=== PATIENT | female | born 1945 | race Caucasian/White ===

== ENCOUNTER 2017-05-03 19:15 | Emergency (ER) | payer MEDICARE ==
--- NOTE | 2017-05-03 19:53 | ER Document Report ---
ED Medical Screen (RME) - General Chief Complaint: Abdominal Pain Stated Complaint: ABDOMINAL PAIN Time Seen by Provider: 05/03/17 19:34 Mode of Arrival: Ambulatory Information source: Patient Notes: 71-year-old female presents with complaints of right lower quadrant abdominal pain. Patient notes the pain radiates to her side. Denies any fevers or chills nausea vomiting or diarrhea I have greeted and performed a rapid initial assessment of this patient. A comprehensive ED assessment and evaluation of the patient, analysis of test results and completion of the medical decision making process will be conducted by additional ED providers. PHYSICAL EXAMINATION: GENERAL: Well-appearing, well-nourished and in no acute distress. HEAD: Atraumatic, normocephalic. EYES: Pupils equal round extraocular movements intact, conjunctiva are normal. ENT: Nares patent NECK: Normal range of motion LUNGS: No respiratory distress Musculoskeletal: Normal range of motion NEUROLOGICAL: Normal speech, normal gait. PSYCH: Normal mood, normal affect. SKIN: Warm, Dry, normal turgor, no rashes or lesions noted. TRAVEL OUTSIDE OF THE [place] IN LAST 30 DAYS: No Past Medical History Renal/ Medical History: Denies: Hx Peritoneal Dialysis
[2017-05-03 20:35] LABS: ABSOLUTE BASOPHILS # (AUTO) 0.1 10^3/uL (0.0-0.2); ABSOLUTE EOSINOPHILS # (AUTO) 0.3 10^3/uL (0.0-0.6); ABSOLUTE LYMPHOCYTES (AUTO) 2.5 10^3/uL (0.5-4.7); ABSOLUTE MONOCYTES (AUTO) 0.4 10^3/uL (0.1-1.4); BASOPHILS % (AUTO) 1.5 % (0-2); HEMATOCRIT 44.8 % (36.0-47.0); HEMOGLOBIN 14.9 g/dL (12.0-15.5); HGB HCT DIFFERENCE -0.1; LYMPHOCYTES % (AUTO) 39.5 % (13-45); MEAN CORPUSCULAR HGB CONC 33.2 g/dL (32.0-36.0); MEAN CORPUSCULAR VOLUME 88 fl (80-97); MONOCYTES % (AUTO) 6.8 % (3-13); RED BLOOD COUNT 5.12 10^6/uL (3.72-5.28); RED CELL DISTRIBUTION WIDTH 15.2 % (11.5-14.0); SEGMENTED NEUTROPHILS % (AUTO) 47.2 % (42-78); WHITE BLOOD COUNT 6.4 10^3/uL (4.0-10.5)
[2017-05-03 20:43] LABS: APPEARANCE,URINE CLEAR
[2017-05-03 20:44] LABS: BILIRUBIN,URINE NEGATIVE (NEGATIVE); GLUCOSE, URINE NEGATIVE (NEGATIVE); KETONES,URINE NEGATIVE (NEGATIVE); LEUKOCYTE ESTERASE,URINE NEGATIVE (NEGATIVE); NITRITE,URINE NEGATIVE (NEGATIVE); PROTEIN,URINE 30 mg/dL (NEGATIVE); URINE SPECIFIC GRAVITY 1.024; UROBILINOGEN,URINE NEGATIVE mg/dL (<2.0)
[2017-05-03 20:45] LABS: BACTERIA,URINE TRACE /HPF; RBC,URINE 0-1 /HPF; WBC,URINE 0-1 /HPF
[2017-05-03 20:56] LABS: ALANINE AMINOTRANSFERASE 30 U/L (9-52); ALBUMIN 3.8 g/dL (3.5-5.0); ALKALINE PHOSPHATASE 116 U/L (38-126); ANION GAP 9 (5-19); ASPARTATE AMINO TRANSFERASE 24 U/L (14-36); BILIRUBIN,DIRECT 0.3 mg/dL (0.0-0.4); BILIRUBIN,TOTAL 0.4 mg/dL (0.2-1.3); BLOOD UREA NITROGEN 18 mg/dL (7-20); CALCIUM 9.3 mg/dL (8.4-10.2); CARBON DIOXIDE 25 mmol/L (22-30); CHLORIDE 106 mmol/L (98-107); CREATININE RESULT 1.01 mg/dL (0.52-1.25); GLUCOSE 110 mg/dL (75-110); POTASSIUM 3.6 mmol/L (3.6-5.0); SODIUM 139.9 mmol/L (137-145); TOTAL PROTEIN 7.4 g/dL (6.3-8.2)
--- NOTE | 2017-05-03 21:07 | ER Document Report ---
ED General - General Chief Complaint: Hip Pain Stated Complaint: Right hip pain Time Seen by Provider: 05/03/17 19:34 Mode of Arrival: Ambulatory Notes: Patient is a 71-year-old woman who presents with 4 days of progressively worsening right hip and buttock pain. Contrary to triage assessment initial stated complaint patient does not actually have any abdominal pain whatsoever. She is actually complaining of right buttock pain as well as pain over the right hip. She has a history of former right hip replacement but notes that she has a "bad right knee" and has been walking without a cane. Her pain is described as a dull, constant, throbbing pain to the affected area. It is worsened by weightbearing and moving the hip. She has not been trying to improve the pain. She has not seen a primary care doctor regarding these concerns. She denies any associated nausea, vomiting, diarrhea, fever, dysuria , vaginal bleeding or discharge. TRAVEL OUTSIDE OF THE [place] IN LAST 30 DAYS: No - Related Data Allergies/Adverse Reactions: No Known Allergies Allergy (Unverified 05/03/17 21:08) Home Medications: Current Home Medications Metoprolol Succinate 25 mg PO DAILY 05/03/17 [History] Ranitidine HCl [Zantac] 25 mg PO DAILY 05/03/17 [History] Past Medical History - General Information source: Patient - Social History Smoking Status: Never Smoker Chew tobacco use (# tins/day): No Frequency of alcohol use: None Drug Abuse: None Lives with: Spouse/Significant other Family History: Reviewed & Not Pertinent Patient has suicidal ideation: No Patient has homicidal ideation: No - Past Medical History Cardiac Medical History: Reports: Hx Hypertension Renal/ Medical History: Denies: Hx Peritoneal Dialysis Review of Systems - Review of Systems Notes: Constitutional: Negative for fever. HENT: Negative for sore throat. Eyes: Negative for visual changes. Cardiovascular: Negative for chest pain. Respiratory: Negative for shortness of breath. Gastrointestinal: Negative for abdominal pain, vomiting or diarrhea. Genitourinary: Negative for dysuria. Musculoskeletal: Positive for right hip pain and buttock pain Skin: Negative for rash. Neurological: Negative for headaches, weakness or numbness. 10 point ROS negative except as marked above and in HPI. Physical Exam - Vital signs Vitals: Temp Pulse Resp BP Pulse Ox 97.9 F 80 20 154/78 H 95 05/03/17 19:20 05/03/17 19:20 05/03/17 19:20 05/03/17 19:20 05/03/17 19:20 Interpretation: Hypertensive Notes: PHYSICAL EXAMINATION: GENERAL: Well-appearing, well-nourished and in no acute distress. HEAD: Atraumatic, normocephalic. EYES: Pupils equal round and reactive to light, extraocular movements intact, sclera anicteric, conjunctiva are normal. ENT: nares patent, oropharynx clear without exudates. Moist mucous membranes. NECK: Normal range of motion, supple without lymphadenopathy LUNGS: Breath sounds clear to auscultation bilaterally and equal. No wheezes rales or rhonchi. HEART: Regular rate and rhythm without murmurs ABDOMEN: Soft, nontender, normoactive bowel sounds. No guarding, no rebound. No masses appreciated. EXTREMITIES: Normal range of motion, no pitting or edema. Pain on palpation of the right hip and gluteus muscle. NEUROLOGICAL: No focal neurological deficits. Moves all extremities spontaneously and on command. PSYCH: Normal mood, normal affect. SKIN: Warm, Dry, normal turgor, no rashes or lesions noted. Course - Re-evaluation Re-evalutation: 05/03/17 21:10 Patient presents with 3 days of progressively worsening right hip and buttock pain but denies any actual abdominal pain contrary to triage assessment. Patient has no focal abdominal tenderness whatsoever on exam actually has pain with axial loading of the right hip and range of motion of the right hip. She does have chronic right knee pain and I suspect this is causing her to walk with an abnormal gait causing right hip, buttock and low back pain which is exactly the patient has tenderness on palpation. Urinalysis and basic laboratories obtained in triage are unremarkable. Again I do not suspect an acute appendicitis, acute cystitis, biliary pathology, pancreatitis, bowel perforation or mesenteric ischemia based on her exam, vitals labs and history. I discussed at length with the patient her need to follow-up with an orthopedic surgeon as her chronic knee pain is likely triggering her hip and low back discomfort. At this time will discharge with return precautions and follow-up recommendations. Verbal discharge instructions given a the bedside and opportunity for questions given. Medication warnings reviewed. Patient is in agreement with this plan and has verbalized understanding of return precautions and the need for primary care follow-up in the next 24-72 hours. - Vital Signs Vital signs: Temp Pulse Resp BP Pulse Ox 98.1 F 54 L 13 151/78 H 87 L 05/03/17 21:19 05/03/17 21:19 05/03/17 21:19 05/03/17 21:19 05/03/17 21:19 - Laboratory Result Diagrams: 05/03/17 20:10 05/03/17 20:10 Laboratory results interpreted by me: 05/03/17 05/03/17 05/03/17 20:10 20:10 20:10 RDW 15.2 H Est GFR (Non-Af Amer) 54 L Urine Protein 30 H Discharge - Discharge Clinical Impression: Right hip pain, Right buttock pain Condition: Good Disposition: HOME, SELF-CARE Additional Instructions: Please follow-up with orthopedic surgery for management of your pain in the knee and hip. Return if you develop vomiting, fever, worsening of your pain, weakness, numbness or any other symptoms that are worrisome to you. Referrals: HENRIETTA NOBLE MD [ACTIVE STAFF] - Follow up as needed JARRED STRICKLAND MD [ACTIVE STAFF] - Follow up as needed
[2017-05-03 21:26] VITALS: BP 151/78
== END 2017-05-03 21:27 | disposition home or self-care (01) ==
LOC: ER 19:15
DX: M25.551 Pain in right hip (principal); I10 Essential (primary) hypertension; G89.29 Other chronic pain; M25.561 Pain in right knee; Z96.641 Presence of right artificial hip joint
CPT/HCPCS: 36415; 80053; 81001; 83690; 85025; 99284

== ENCOUNTER 2017-05-15 12:49 | Emergency (ER) | payer MEDICARE ==
[2017-05-15] MEDS ORDERED: OXYCODONE-ACETAMINOPHEN 5-325 MG TABLET PO ONE (15:57)
--- NOTE | 2017-05-15 16:02 | ER Document Report ---
ED General - General Chief Complaint: Low Back Pain Stated Complaint: BACK PAIN Time Seen by Provider: 05/15/17 15:56 Information source: Patient Notes: Patient is a 71-year-old female that is recently moved here april 05 who presents today stating that she has had some low back pain and right upper quadrant pain initially around 3 weeks ago. She states she was seen here and had laboratory evaluation. Patient states she felt better for around 1 week and then started again with the pain. She states it is mostly to her back. She states it is "sharp", without radiation. She denies any leg weakness or numbness. She denies any incontinence, dysuria, or fevers. She does not endorse nausea, vomiting, or diarrhea. Patient denies a history of kidney stones. She denies any cough or shortness of breath. States the pain is mostly to her back, worse when she gets up from a seated position or sits up from a lying position. TRAVEL OUTSIDE OF THE [place] IN LAST 30 DAYS: No - HPI Onset: Other - See above Onset/Duration: Gradual Quality of pain: Achy Severity: Mild Pain Level: 1 Associated symptoms: Other - See above Exacerbated by: Other - See above Relieved by: Other - See above Similar symptoms previously: Yes Recently seen / treated by doctor: Yes - Related Data Allergies/Adverse Reactions: No Known Allergies Allergy (Verified 05/15/17 13:20) Past Medical History - General Information source: Patient - Social History Smoking Status: Never Smoker Chew tobacco use (# tins/day): No Frequency of alcohol use: None Drug Abuse: None Family History: Reviewed & Not Pertinent Patient has suicidal ideation: No Patient has homicidal ideation: No - Past Medical History Cardiac Medical History: Reports: Hx Hypertension Renal/ Medical History: Denies: Hx Peritoneal Dialysis Past Surgical History: Reports: Hx Orthopedic Surgery Review of Systems - Review of Systems Constitutional: denies: Fever Cardiovascular: denies: Chest pain, Palpitations Respiratory: denies: Short of breath Gastrointestinal: denies: Vomiting Genitourinary: denies: Dysuria Musculoskeletal: denies: Leg swelling Skin: Other - no hives. denies: Rash Neurological/Psychological: Other - no slurred speech -: Yes All other systems reviewed and negative Physical Exam - Vital signs Vitals: Temp Pulse Resp BP Pulse Ox 98.3 F 60 18 142/79 H 97 05/15/17 13:22 05/15/17 13:22 05/15/17 13:22 05/15/17 13:22 05/15/17 13:22 Notes: Reviewed vital signs and nursing note as charted by RN. CONSTITUTIONAL: Alert and oriented and responds appropriately to questions. Well -appearing; well-nourished HEAD: Normocephalic; atraumatic CARD: Regular rate and rhythm; no murmurs, no clicks, no rubs, no gallops; symmetric distal pulses RESP: Normal chest excursion without splinting or tachypnea; breath sounds clear and equal bilaterally ABD/GI: Normal bowel sounds; non-distended; soft, non-tender currently to deep palpation in all 4 quadrants of the abdomen. Patient has no abdominal masses or bruits palpable BACK: The back appears normal. Patient has no midline step-offs, tenderness, or swelling. Patient has some mild bilateral flank tenderness, right greater than left EXT: Normal ROM in all joints; non-tender to palpation; no cyanosis, no effusions, no edema SKIN: Normal color for age and race; warm; dry; good turgor; capillary refill < 2 seconds; no acute lesions noted NEURO: Moves all extremities equally; 5 out of 5 bilateral lower extremity strength with normal reflexes PSYCH: The patient's mood and manner are appropriate. Grooming and personal hygiene are appropriate. Course - Re-evaluation Re-evalutation: 05/15/17 16:01 Given the above history and physical examination, visit, we will obtain basic labs, abdominal labs, urine analysis, and a CT scan of the abdomen and pelvis renal colic protocol to evaluate both kidneys, ureter tracts, and possibly obvious intra-abdominal pathology. Patient states only pain mostly to her back. Denies any pain currently to her abdomen. Patient has no lower extremity weakness or numbness leading us to believe acute cord compression to be extremely unlikely. 05/15/17 16:39 EKG shows a heart rate of 49, sinus bradycardia, normal axis, no obvious ST elevation or depression, flattening T waves in leads aVL, V2, and V3 05/15/17 18:43 CT imaging as recorded. Labs as recorded. Normal white blood cell count. Normal liver panel that I added to the previous labs. Patient still has no tenderness to the right upper quadrant. Given the above history, physical, and laboratory values, patient will be discharged home at this time with strict return precautions and follow-up with her primary care physician. - Vital Signs Vital signs: Temp Pulse Resp BP Pulse Ox 98.3 F 60 18 142/79 H 97 05/15/17 13:22 05/15/17 13:22 05/15/17 13:22 05/15/17 13:22 05/15/17 13:22 - Laboratory Result Diagrams: 05/15/17 16:35 05/15/17 16:35 Laboratory results interpreted by me: 05/15/17 05/15/17 16:35 16:35 RBC 5.38 H RDW 15.3 H Alkaline Phosphatase 135 H Discharge - Discharge Clinical Impression: Low back strain Qualifiers: Encounter type: initial encounter Qualified Code(s): S39.012A - Strain of muscle, fascia and tendon of lower back, initial encounter Cholelithiasis Qualifiers: Cholelithiasis location: gallbladder Cholecystitis presence: without cholecystitis Biliary obstruction: without biliary obstruction Qualified Code(s) : K80.20 - Calculus of gallbladder without cholecystitis without obstruction Condition: Good Disposition: HOME, SELF-CARE Additional Instructions: Come back immediately with any increased pain, weakness or numbness, incontinence, fevers or vomiting, abdominal pain, or any other acute problems. Please follow-up with orthopedics as we have discussed. Prescriptions: Hydrocodone/Acetaminophen [[employer] 5-325 Tablet] 1 each PO Q6 PRN #12 tablet PRN Reason: For Pain
--- NOTE | 2017-05-15 16:45 | RADIOLOGY REPORT (SQ) ---
EXAM DESCRIPTION: CT LTD RENAL STONE PROTOCOL ON COMPLETED DATE/TIME: 05/15/2017 4:16 pm REASON FOR STUDY: 38, right back/right abd pain 2 weeks, no f/dysuri COMPARISON: None. TECHNIQUE: CT scan of the abdomen and pelvis performed without intravenous or oral contrast. Images reviewed with lung, soft tissue, and bone windows. Reconstructed coronal and sagittal MPR images revi ewed. All images stored on PACS. All CT scanners at this facility use dose modulation, iterative reconstruction, and/or weight based d osing when appropriate to reduce radiation dose to as low as reasonably achievable (ALARA). [facility]: Dose Right [facility]: CareDose [facility]: Dose Right [facility]: Teradose 4D [facility]: Smart [employer] RADIATION DOSE: Up-to-date CT equipment and radiation dose reduction techniques were employed. CTDIv ol: 6.4 mGy. DLP: 308 mGy-cm.mGy. LIMITATIONS: None. FINDINGS: LOWER CHEST: No significant findings. No nodules or infiltrates. NON-CONTRASTED LIVER, SPLEEN, ADRENALS: Evaluation limited by lack of IV contrast. No identified sign ificant masses. PANCREAS: No masses. No peripancreatic inflammatory changes. GALLBLADDER: Small calcified gallstones. No evidence of cholecystitis. RIGHT KIDNEY AND URETER: No suspicious masses. Assessment limited by lack of IV contrast. No signif icant calcifications. No hydronephrosis or hydroureter. LEFT KIDNEY AND URETER: No suspicious masses. Assessment limited by lack of IV contrast. No signifi cant calcifications. No hydronephrosis or hydroureter. AORTA AND RETROPERITONEUM: No aneurysm. No retroperitoneal masses or adenopathy. BOWEL AND PERITONEAL CAVITY: Sigmoid diverticulosis. No evidence of diverticulitis. APPENDIX: Not visualized. PELVIS, BLADDER, AND ABDOMINAL WALL:No abnormal masses. No free fluid. Bladder normal. BONES: Mild compression fracture at T12, age indeterminate but probably chronic. Severe degenerative changes involving the facet joints at L4-5 and L5-S1. OTHER: No other significant finding. IMPRESSION: 1. Cholelithiasis. No evidence cholecystitis. 2. No evidence of urinary tract stones or obstruction. 3. Diverticulosis without evidence of diverticulitis. 4. Mild compression fracture at T12, age indeterminate but probably chronic. TECHNICAL DOCUMENTATION: JOB ID: [id number] Quality ID # [id number]: Final reports with documentation of one or more dose reduction techniques (e.g., Au tomated exposure control, adjustment of the mA and/or kV according to patient size, use of iterative reconstruction technique) 2010 [employer]- All Rights Reserved
[2017-05-15 16:52] LABS: ABSOLUTE BASOPHILS # (AUTO) 0.1 10^3/uL (0.0-0.2); ABSOLUTE EOSINOPHILS # (AUTO) 0.3 10^3/uL (0.0-0.6); ABSOLUTE LYMPHOCYTES (AUTO) 2.6 10^3/uL (0.5-4.7); ABSOLUTE MONOCYTES (AUTO) 0.5 10^3/uL (0.1-1.4); ABSOLUTE NEUT (AUTO) 3.1 10^3/uL (1.7-8.2); BASOPHILS % (AUTO) 1.1 % (0-2); EOSINOPHILS % (AUTO) 4.9 % (0-6); HEMATOCRIT 46.9 % (36.0-47.0); HEMOGLOBIN 15.4 g/dL (12.0-15.5); HGB HCT DIFFERENCE -0.7; MEAN CORPUSCULAR HEMOGLOBIN 28.6 pg (27.0-33.4); MEAN CORPUSCULAR HGB CONC 32.8 g/dL (32.0-36.0); MEAN CORPUSCULAR VOLUME 87 fl (80-97); MONOCYTES % (AUTO) 7.2 % (3-13); RED BLOOD COUNT 5.38 10^6/uL (3.72-5.28); RED CELL DISTRIBUTION WIDTH 15.3 % (11.5-14.0); SEGMENTED NEUTROPHILS % (AUTO) 46.8 % (42-78); WHITE BLOOD COUNT 6.6 10^3/uL (4.0-10.5)
[2017-05-15 17:02] LABS: APPEARANCE,URINE CLEAR; BILIRUBIN,URINE NEGATIVE (NEGATIVE); GLUCOSE, URINE NEGATIVE (NEGATIVE); KETONES,URINE NEGATIVE (NEGATIVE); LEUKOCYTE ESTERASE,URINE NEGATIVE (NEGATIVE); NITRITE,URINE NEGATIVE (NEGATIVE); PROTEIN,URINE NEGATIVE (NEGATIVE); URINE SPECIFIC GRAVITY 1.008; UROBILINOGEN,URINE NEGATIVE mg/dL (<2.0)
--- NOTE | 2017-05-15 17:04 | EKG REPORT ---
SEVERITY:- OTHERWISE NORMAL ECG - SINUS BRADYCARDIA ATRIAL PREMATURE COMPLEX : Confirmed by: Rosie Aranda MD 15-May-2017 17:03:50
[2017-05-15 17:06] LABS: ANION GAP 13 (5-19); BLOOD UREA NITROGEN 12 mg/dL (7-20); CALCIUM 9.3 mg/dL (8.4-10.2); CARBON DIOXIDE 24 mmol/L (22-30); CHLORIDE 103 mmol/L (98-107); CREATININE RESULT 0.76 mg/dL (0.52-1.25); GLUCOSE 104 mg/dL (75-110); POTASSIUM 3.6 mmol/L (3.6-5.0); SODIUM 139.6 mmol/L (137-145)
[2017-05-15 18:24] LABS: ADD ON TESTING BLD IN LAB ACKNOWLEDGE
[2017-05-15 18:34] LABS: ALANINE AMINOTRANSFERASE 27 U/L (9-52); ALBUMIN 4.1 g/dL (3.5-5.0); ALKALINE PHOSPHATASE 135 U/L (38-126); ASPARTATE AMINO TRANSFERASE 26 U/L (14-36); BILIRUBIN,DIRECT 0.4 mg/dL (0.0-0.4); BILIRUBIN,TOTAL 0.5 mg/dL (0.2-1.3); TOTAL PROTEIN 7.7 g/dL (6.3-8.2)
[2017-05-15 19:06] VITALS: BP 145/80
== END 2017-05-15 19:06 | disposition home or self-care (01) ==
LOC: ER 12:49
DX: S39.012A Strain of muscle, fascia and tendon of lower back, initial encounter (principal); X58.XXXA Exposure to other specified factors, initial encounter; K80.20 Calculus of gallbladder without cholecystitis without obstruction; R00.1 Bradycardia, unspecified; I10 Essential (primary) hypertension; Z87.442 Personal history of urinary calculi
CPT/HCPCS: 93005; 99284; 36415; 85025; 80076; 80048; 81001; 76380; 93010; A9270

== ENCOUNTER → 2017-05-31 | Outpatient (CLI) | payer MEDICARE, OTHER ==
--- NOTE | 2017-05-31 15:59 | RADIOLOGY REPORT (SQ) ---
EXAM DESCRIPTION: LUMBAR SPINE COMPLETE COMPLETED DATE/TIME: 05/31/2017 1:17 pm REASON FOR STUDY: DORSALGIA, UNSPECIFIED M54.9 DORSALGIA, UNSPECIFIED COMPARISON: CT abdomen pelvis 05/15/2017 NUMBER OF VIEWS: Five views including obliques. TECHNIQUE: AP, lateral, oblique, and sacral radiographic images acquired of the lumbar spine. LIMITATIONS: None. FINDINGS: MINERALIZATION: Osteoporotic SEGMENTATION: Normal. No transitional anatomy. ALIGNMENT: Minimal anterolisthesis of L4 over L5 related to bilateral facet arthropathy VERTEBRAE: 50% compression at T12, with sclerosis along the inferior endplate. This has progressed s billy CT exam 05/15/2017. Consider kyphoplasty for pain management. DISCS: Preserved height. No significant osteophytes or end plate irregularity. POSTERIOR ELEMENTS: Pedicles and facets are intact. No pars defect or posterior arch defects. Advan radha bilateral facet arthropathy at L4-5, mild bilateral facet arthropathy at L5-S1. HARDWARE: None in the spine. PARASPINAL SOFT TISSUES: Normal. PELVIS: Intact as visualized. No fractures or worrisome bone lesions. SI joints intact. OTHER: No other significant finding. IMPRESSION: Subacute 50% compression of the T12 vertebral body, may be amenable to kyphoplasty for p ain management. Osteoporosis This report was called to Dr. Wiley, 1545 hours 05/31/2017 TECHNICAL DOCUMENTATION: JOB ID: [id number]- All Rights Reserved
--- NOTE | 2017-05-31 16:02 | RADIOLOGY REPORT (SQ) ---
EXAM DESCRIPTION: T SPINE AP/LAT COMPLETED DATE/TIME: 05/31/2017 1:17 pm REASON FOR STUDY: DORSALGIA, UNSPECIFIED M54.9 DORSALGIA, UNSPECIFIED COMPARISON: Lumbar spine films same date CT abdomen pelvis 05/16/2017 NUMBER OF VIEWS: Two views. TECHNIQUE: AP and lateral radiographic images acquired of the thoracic spine. LIMITATIONS: None. FINDINGS: MINERALIZATION: Osteoporotic ALIGNMENT: Normal. No scoliosis. VERTEBRAE: T12 compression deformity, with 25 to 50% anterior loss of height. This is more prominent than on CT exam 05/15/2017. This is likely a subacute compression deformity, amenable to kyphoplasty for pain management. DISCS: No significant loss of height or significant narrowing. No large osteophytes. HARDWARE: None in the spine. MEDIASTINUM AND SOFT TISSUES: Normal heart size and aortic contour. No soft tissue abnormality. VISUALIZED LUNG INGRAM: Clear. OTHER: Report called to Dr. Wiley IMPRESSION: Subacute T12 compression deformity, with 25 to 50% loss of height. TECHNICAL DOCUMENTATION: JOB ID: [id number] [employer]- All Rights Reserved
== END ==
LOC: OD 12:22
PROVIDERS: ATTEND Family Medicine
DX: M54.9 Dorsalgia, unspecified (principal)
CPT/HCPCS: 72070; 72110

== ENCOUNTER → 2017-06-07 | Outpatient (CLI) | payer MEDICARE ==
--- NOTE | 2017-06-07 14:34 | WOMENS IMAGING REPORT ---
EXAM DESCRIPTION: BONE DENSITY HIP/SPINE COMPLETED DATE/TIME: 06/07/2017 1:39 pm REASON FOR STUDY: M81.0 M81.0 AGE-RELATED OSTEOPOROSIS W/O CURRENT PATHOLOGICAL FRAC COMPARISON: None. TECHNIQUE: Dual-Energy X-ray Absorptiometry (DEXA) of the AP Spine and Hip. LIMITATIONS: None. FINDINGS: LUMBAR SPINE: The bone mineral density (BMD) measured from L1-L4 in the AP projection correlates with a T-score of -3.5, which is osteoporosis as defined by the World Health Organization. HIP: The bone mineral density (BMD) measured in the left hip correlates with a T-score of -3.4 in the femo ral neck, which is osteoporosis as defined by the World Health Organization. IMPRESSION: 1. LUMBAR SPINE: Osteoporosis 2. HIP: Osteoporosis COMMENT: The World Health Organization defines low BMD as follows: T-score: Normal: Greater than -1.0 Osteopenia: Between -1.0 and -2.5 Osteoporosis: Less than -2.5 without fractures Established osteoporosis: Less than -2.5 with fractures In general, you may wish to consider: Diagnosis Treatment Follow-up DEXA Normal BMD Prevention 2-3 years Osteopenia Prevention/Therapy 1-2 years Osteoporosis Therapy Yearly TECHNICAL DOCUMENTATION: JOB ID: [id number] [employer]- All Rights Reserved
== END ==
LOC: WI 09:29
PROVIDERS: ATTEND Family Medicine
DX: M81.0 Age-related osteoporosis without current pathological fracture (principal)
CPT/HCPCS: 77080

== ENCOUNTER 2017-06-16 19:34 | Emergency (ER) | payer MEDICARE, OTHER ==
--- NOTE | 2017-06-16 22:59 | RADIOLOGY REPORT (SQ) ---
EXAM DESCRIPTION: HIP RIGHT AP/LATERAL COMPLETED DATE/TIME: 06/16/2017 10:43 pm REASON FOR STUDY: pain recent surgery COMPARISON: None. NUMBER OF VIEWS: Two views. TECHNIQUE: AP pelvis and additional frog-leg view of the right hip. LIMITATIONS: None. FINDINGS: MINERALIZATION: Osteopenia. RIGHT HIP: Status post over if of the proximal femur without evidence of hardware complication. LEFT HIP: No fracture or dislocation. No worrisome bone lesions. PUBIS AND ISCHIUM: Right inferior pubic ramus irregularity likely on the basis of healed fracture. PELVIS: No fracture. SACRUM: No fracture or dislocation. No worrisome bone lesions. LOWER LUMBAR SPINE: No fracture or dislocation. No worrisome bone lesions. No significant disc disea se. SOFT TISSUES: No findings. OTHER: No other significant finding. IMPRESSION: Status post ORIF of the right proximal femur/ femoral neck. No evidence of acute osseou s injury. TECHNICAL DOCUMENTATION: JOB ID: [id number] [employer]- All Rights Reserved
[2017-06-16] MEDS ORDERED: HYDROCODONE/ACETAMINOPHEN 5-325 MG TABLET PO ONE (23:49)
--- NOTE | 2017-06-16 23:50 | ER Document Report ---
ED Neck/Back Problem - General Chief Complaint: Back Injury Stated Complaint: PAIN ON BOTTOM Time Seen by Provider: 06/16/17 22:23 Mode of Arrival: Ambulatory Information source: Patient Notes: 61-year-old female presented to ED for complaint of right lower back pain. She states she had a spinal fracture a couple weeks ago and was placed on steroids and that she had a recent fracture. She was concerned that she had somehow refractured her hip. She denies any fall or injury. TRAVEL OUTSIDE OF THE [place] IN LAST 30 DAYS: No - HPI Patient complains to provider of: Pain, Lower back - Lower right back. No: Injury Onset: Yesterday Onset: Gradual Quality of pain: Sharp Severity: Moderate Pain Level: 3 Context: Other - Pain to the right buttocks area Recent injury: No Associated symptoms: Like prior neck/back pain, Lower back pain. denies: Numbness/tingling, Radiation to leg Exacerbated by: Sitting position Relieved by: Nothing Similar symptoms previously: Yes Recently seen / treated by doctor: No - Related Data Allergies/Adverse Reactions: No Known Allergies Allergy (Verified 06/16/17 19:41) Past Medical History - General Information source: Patient - Social History Smoking Status: Current Every Day Smoker Cigarette use (# per day): Yes Chew tobacco use (# tins/day): No Smoking Education Provided: Yes Frequency of alcohol use: Occasional Drug Abuse: None Lives with: Family Family History: Reviewed & Not Pertinent Patient has suicidal ideation: No Patient has homicidal ideation: No - Past Medical History Cardiac Medical History: Reports: Hx Hypertension Pulmonary Medical History: Reports: None EENT Medical History: Reports: None Neurological Medical History: Reports: None Endocrine Medical History: Reports: None Renal/ Medical History: Reports: None Malignancy Medical History: Reports: None GI Medical History: Reports: None Musculoskeltal Medical History: Reports Hx Arthritis, Reports Hx Musculoskeletal Trauma Skin Medical History: Reports None Psychiatric Medical History: Reports: None Traumatic Medical History: Reports: Hx Fractures Infectious Medical History: Reports: None Past Surgical History: Reports: Hx Orthopedic Surgery Review of Systems - Review of Systems Constitutional: No symptoms reported EENT: No symptoms reported Cardiovascular: No symptoms reported Respiratory: No symptoms reported Gastrointestinal: No symptoms reported Genitourinary: No symptoms reported Female Genitourinary: No symptoms reported Musculoskeletal: Back pain, Muscle pain, Muscle stiffness Skin: No symptoms reported Hematologic/Lymphatic: No symptoms reported Neurological/Psychological: No symptoms reported -: Yes All other systems reviewed and negative Physical Exam - Vital signs Vitals: Temp Pulse Resp BP Pulse Ox 98.0 F 87 16 156/93 H 97 06/16/17 19:43 06/16/17 19:43 06/16/17 19:43 06/16/17 19:43 06/16/17 19:43 Interpretation: Normal - General General appearance: Appears well, Alert - HEENT Head: Normocephalic, Atraumatic Eyes: Normal Pupils: PERRL - Respiratory Respiratory status: No respiratory distress Chest status: Nontender Breath sounds: Normal Chest palpation: Normal - Cardiovascular Rhythm: Regular Heart sounds: Normal auscultation Murmur: No - Abdominal Inspection: Normal Distension: No distension Bowel sounds: Normal Tenderness: Nontender Organomegaly: No organomegaly - Back Back: Normal, Tender - Buttocks area right. No: Deformity/step-off, CVA tenderness, Vertebra tenderness, Scars, Scoliosis, Wounds - Extremities General upper extremity: Normal inspection, Nontender, Normal color, Normal ROM , Normal temperature General lower extremity: Normal inspection, Nontender, Normal color, Normal ROM , Normal temperature, Normal weight bearing. No: Devendra's sign - Neurological Neuro grossly intact: Yes Cognition: Normal Orientation: AAOx4 Jesus Coma Scale Eye Opening: Spontaneous Jesus Coma Scale Verbal: Oriented Edmonds Coma Scale Motor: Obeys Commands Jesus Coma Scale Total: 15 Speech: Normal Motor strength normal: LUE, RUE, LLE, RLE Sensory: Normal - Psychological Associated symptoms: Normal affect, Normal mood - Skin Skin Temperature: Warm Skin Moisture: Dry Skin Color: Normal Course - Re-evaluation Re-evalutation: 06/17/17 08:17 X-ray discussed with patient and 1 [place] given for tonight. And patient was instructed to use ibuprofen ice Aspercreme and follow-up with primary MD. - Vital Signs Vital signs: Temp Pulse Resp BP Pulse Ox 98.0 F 72 18 154/88 H 96 06/16/17 19:43 06/17/17 00:35 06/17/17 00:35 06/17/17 00:35 06/17/17 00:35 - Diagnostic Test Radiology reviewed: Image reviewed, Reports reviewed Discharge - Discharge Clinical Impression: Sacral back pain Condition: Stable Disposition: HOME, SELF-CARE Additional Instructions: LOW BACK PAIN: Three out of every four people will have an episode of disabling back pain during their lifetime. Most commonly the pain is due to straining of the muscles and ligaments in the low back. Usual treatment includes: (1) Rest on a firm surface. Avoid lying on your stomach. (2) Ice pack the painful area. After a few days, gentle heat may be used intermittently to relax the area, or ice packs can be continued. (3) Medication may be needed -- muscle relaxers and antiinflammatory medicines are commonly used. (4) As the back improves, exercises are prescribed to strengthen the back and abdominal muscles. Your doctor will advise you on the proper care for your back at each stage in your recovery. You may be better in a few days -- or healing may take several weeks. If new symptoms of a "herniated disc" (radiation of pain, numbness, or tingling down the back of the leg or weakness in the leg) occur, you should be re-examined. Further testing may be necessary. ORAL NARCOTIC MEDICATION: You have been given a norco for pain control. This medication is a narcotic. It's best taken with food, as nausea can result if taken on an empty stomach. Don't operate machinery or drive within six hours of taking this medication. Do not combine this medicine with alcohol, or with any medication which can cause sedation (such as cold tablets or sleeping pills) unless you get permission from the physician. Narcotics tend to cause constipation. If possible, drink plenty of fluids and eat a diet high in fiber and fruits. Please be aware that prescription narcotics also have the potential for abuse. People become addicted to these medications because of the general sense of wellbeing that they induce. This feeling along with a significant reduction in tension, anxiety, and aggression provides a stimulating seductive quality to these drugs. Once your pain is under control, we encourage you to discard your unused narcotics. Ibuprofen Ibuprofen is an excellent, safe drug for pain control. In addition, it has potent antiinflammatory effects which are beneficial, especially in the treatment of injuries, arthritis, or tendonitis. It's best to take ibuprofen with food. Persons with ulcer disease or allergy to aspirin should notify their physician of this before taking ibuprofen. Take the medication exactly as prescribed. Don't take additional doses unless instructed to do so by your doctor. If you develop wheezing, shortness of breath, hives, faintness, stomach pain, vomiting, or dark black stools, return for re-evaluation at once. ICE PACKS: Apply ice packs frequently against the painful area. Many different schedules are recommended, such as "20 minutes on, 20 minutes off" or "one hour ice, two hours rest." If you need to work, you may need to go longer between ice treatments. You should plan to have the area ice packed AT LEAST one fourth of the time. The ice should be applied over the wrap, tape, or splint, or over a layer of cloth -- not directly against the skin. Some ice bags have a built-in cloth and can be put directly on the skin. WARM PACKS: After approximately two days, apply gentle heat (such as a heating pad or hot water bottle) for about 20 to 30 minutes about every two hours -- at least four times daily. Warmth and elevation will help you make a more rapid recovery , and will ease the pain considerably. Do not use HOT heat, and never apply heat for longer than 30 minutes. The continuous heat can invisibly damage skin and muscles -- even when no burn is seen on the surface. Damaged muscles can make you MORE sore. FOLLOW-UP CARE: If you have been referred to a physician for follow-up care, call the physician s office for an appointment as you were instructed or within the next two days. If you experience worsening or a significant change in your symptoms, notify the physician immediately or return to the Emergency Department at any time for re-evaluation. Forms: Elevated Blood Pressure Referrals: FAROOQ BLAKE DO [Primary Care Provider] - Follow up as needed
[2017-06-17 00:37] VITALS: BP 154/88
== END 2017-06-17 00:35 | disposition home or self-care (01) ==
LOC: ER 19:34
DX: M54.5 Low back pain (principal); M25.551 Pain in right hip; F17.210 Nicotine dependence, cigarettes, uncomplicated; I10 Essential (primary) hypertension
CPT/HCPCS: 99283; 73502; A9270

== ENCOUNTER 2017-08-13 08:39 | Day surgery (SDC) | payer MEDICARE, OTHER ==
[2017-08-10 12:35] LABS: HEMATOCRIT 43.8 % (36.0-47.0); HEMOGLOBIN 14.8 g/dL (12.0-15.5); HGB HCT DIFFERENCE 0.6; MEAN CORPUSCULAR HEMOGLOBIN 29.8 pg (27.0-33.4); MEAN CORPUSCULAR HGB CONC 33.7 g/dL (32.0-36.0); MEAN CORPUSCULAR VOLUME 89 fl (80-97); RED BLOOD COUNT 4.94 10^6/uL (3.72-5.28); RED CELL DISTRIBUTION WIDTH 14.4 % (11.5-14.0); WHITE BLOOD COUNT 5.5 10^3/uL (4.0-10.5)
[2017-08-10 12:52] LABS: PROTHROMBIN TIME 12.7 SEC (11.4-15.4)
[2017-08-10 12:52] LABS: APPEARANCE,URINE CLEAR; BILIRUBIN,URINE NEGATIVE (NEGATIVE); GLUCOSE, URINE NEGATIVE (NEGATIVE); KETONES,URINE NEGATIVE (NEGATIVE); LEUKOCYTE ESTERASE,URINE TRACE (NEGATIVE); NITRITE,URINE NEGATIVE (NEGATIVE); PROTEIN,URINE NEGATIVE (NEGATIVE); URINE SPECIFIC GRAVITY 1.014
[2017-08-10 12:53] LABS: PARTIAL THROMBOPLASTIN TIME 36.9 SEC (23.5-35.8)
--- NOTE | 2017-08-10 17:24 | EKG REPORT ---
SEVERITY:- ABNORMAL ECG - SINUS BRADYCARDIA : Confirmed by: Carlos Ruiz 10-Aug-2017 17:24:04
[~2017-08-13 08:39] MED LIST: CEFAZOLIN 1 GM/D5W RTU 1 GM/50 ML RTUPB IV PRN; LACTATED RINGERS 1000 ML IV PRN; LIDOCAINE 0.5% INJ-PF (5 MG/ML) 50 ML SDV SUBCUT PRN; LIDOCAINE 1% INJ-PF (10 MG/ML) 30 ML SDV ONE; ONDANSETRON HCL INJ/PF 4 MG/2 ML SDV ONE; SODIUM BICARBONATE 8.4% INJ 50 MEQ/50 ML DISP.SYRIN ONE
[2017-08-13] MEDS ORDERED: KETAMINE HCL INJ 500 MG/10 ML VIAL ONE (10:31)
[2017-08-13] MEDS ORDERED: FENTANYL CITRATE INJ/PF 100 MCG/2 ML AMPUL ONE (10:31)
[2017-08-13] MEDS ORDERED: PROPOFOL INJ 200 MG/20 ML VIAL IV ONE (10:32)
[2017-08-13] MEDS ORDERED: MIDAZOLAM 2 MG/2 ML INJ ONE (10:32)
[2017-08-13] MEDS ORDERED: FENTANYL CITRATE INJ/PF 100 MCG/2 ML AMPUL IV PRN ×3 (12:22)
[2017-08-13] MEDS ORDERED: PROMETHAZINE HCL INJ 25 MG/1 ML VIAL IV PRN (12:22)
[2017-08-13] MEDS ORDERED: DIPHENHYDRAMINE HCL 50 MG/ML VIAL IV PRN (12:22)
[2017-08-13] MEDS ORDERED: CEFAZOLIN INJ 1 GM VIAL ONE (12:37)
--- NOTE | 2017-08-13 13:14 | OPERATIVE REPORT E ---
Operative Report NAME: MADDISON SILVA : 1945 AGE: 71Y DATE OF SURGERY: 08/13/2017 ROOM: PREOPERATIVE DIAGNOSIS: Lumbar vertebral compression fracture L1 and L6. POSTOPERATIVE DIAGNOSIS: Lumbar vertebral compression fracture L1 and L6. OPERATION: Balloon kyphoplasty. SURGEON: MATTHEW EDWARD M.D. ANESTHESIA: MAC. COMPLICATIONS: None. PROCEDURE IN DETAIL: After obtaining informed consent and advising the patient of the risks and benefits, including serious neurological injury, bleeding, infection, paralysis, allergic reaction, and failure to adequately treat pain, she was taken to the operating room suite. She was placed comfortably in the prone position as determined by Anesthesia. She was prepped and draped. A C-arm was brought in for lateral and AP visualizations and draped appropriately sterilely. Beginning at the L1 level using a right peripedicular approach, a suitable skin entry site was identified and anesthetized with 1% lidocaine with bicarb. A small incision was made. Express trocar was then advanced under serial fluoroscopic views in AP and lateral positions, entering in a peripedicular approach and medializing after passing into the vertebral body to be positioned medial to the medial pedicular wall. The drill was then placed and removed followed by the balloon. This procedure was then repeated using a left peripedicular approach to the same vertebral level at L1. Once the balloons were adequately inflated, cement mixture was then mixed, and using the filler tubes at the L1 level a total of 3.2 mL of mixture was placed on both sides. After appropriate cement hardening time, the trocars were removed. Then, attention was made to the other level. The C-arms were repositioned slightly. Pedicles at L6 were identified. Beginning with the right peripedicular approach the skin again was anesthetized. This was followed by a small incision. Again, the Express trocar was advanced at the peripedicular location, advanced into the pedicle of the vertebral body, with care being taken not to medialize too far into the medial vertebral wall prior to entering the body. The drill was then advanced followed by placing the balloon and inflating it. This was then again repeated using the left peripedicular approach at the L6 level. The balloons were sufficiently inflated. Cement mixture was then mixed again and using filler tubes at the L6 level a total of 2.8 mL on both sides was placed. After filler tubes were all removed, stylettes were placed into the trocars. The cement was allowed to harden prior to removing the trocars. The region was cleansed. A sterile dressing was placed. The patient was taken to the PACU for further postoperative care and monitoring and will follow up in clinic tomorrow. DICTATING PHYSICIAN: MATTHEW EWDARD M.D. [id number] PHY#: [id number] ID: [id number] JOB#: [id number] ACCT: [id number] cc:MATTHEW EDWARD M.D. >
[2017-08-13] MEDS ORDERED: OXYCODONE HCL IR 5 MG TABLET PO PRN (13:18)
[2017-08-13] MEDS ORDERED: OXYCODONE HCL IR 5 MG TABLET ONE (13:27)
[2017-08-13 14:39] VITALS: BP 119/62
--- NOTE | 2017-08-13 15:57 | RADIOLOGY REPORT (SQ) ---
EXAM DESCRIPTION: NO CHG FLUORO; L SPINE 2 VIEWS COMPLETED DATE/TIME: 08/13/2017 2:08 pm REASON FOR STUDY: L1, L5 KYPHOPLASTY ASSISTED W/ FLOURO IN OR S32.009A UNSP FRACTURE OF UNSP LUMBAR VERTEBRA, INIT FOR URBANO COMPARISON: None. FLUOROSCOPY TIME: 2.5 minutes 30 images saved to PACS. TECHNIQUE: Intra-operative images acquired during surgical procedure to evaluate progress. NUMBER OF IMAGES: 30 LIMITATIONS: None. FINDINGS: Instrumentation consistent with T12 kyphoplasty. IMPRESSION: IMAGE(S) OBTAINED DURING PROCEDURE. COMMENT: Quality ID 145: Final reports for procedures using fluoroscopy that document radiation exp osure indices, or exposure time and number of fluorographic images (if radiation exposure indices are not available) Please consult full operative report of the attending physician for description of the procedure. TECHNICAL DOCUMENTATION: JOB ID: [id number] [employer]- All Rights Reserved
== END 2017-08-13 14:42 | disposition home or self-care (01) ==
LOC: OROUT 08:39
PROVIDERS: ATTEND Pain Medicine Interventional Pain Medicine
PROC: 0QU03JZ Supplement Lumbar Vertebra with Synthetic Substitute, Percutaneous Approach (ICD-10-PCS; 2017-08-13)
PROC: 0QS03ZZ Reposition Lumbar Vertebra, Percutaneous Approach (ICD-10-PCS; principal; 2017-08-13 11:00)
DX: S32.019A Unspecified fracture of first lumbar vertebra, initial encounter for closed fracture (principal); S32.009A Unspecified fracture of unspecified lumbar vertebra, initial encounter for closed fracture; X58.XXXA Exposure to other specified factors, initial encounter; M54.17 Radiculopathy, lumbosacral region; I10 Essential (primary) hypertension; F17.210 Nicotine dependence, cigarettes, uncomplicated; E78.00 Pure hypercholesterolemia, unspecified; M19.90 Unspecified osteoarthritis, unspecified site; E06.9 Thyroiditis, unspecified; Z86.73 Personal history of transient ischemic attack (TIA), and cerebral infarction without residual deficits; Z79.899 Other long term (current) drug therapy; Z79.82 Long term (current) use of aspirin
CPT/HCPCS: 93005; 36415; 85027; 85610; 85730; 81001; 72100; 93010; 22514; 22515; Q9966; J2250; J0690 ×2; J3010; J3490 ×2; J2405; J2704; A9270; 1936

== ENCOUNTER → 2017-11-22 | Outpatient (CLI) | payer MEDICARE, OTHER ==
--- NOTE | 2017-11-22 18:56 | XCELERA REPORT ---
[address] [address] Transthoracic Echocardiogram Report Name: MADDISON SILVA Age: 72 yrs Gender: Female : 1945 Patient Status: Outpatient Patient Location: Study Date: 11/22/2017 01:22 PM Height: 61 in Weight: 129 lb BSA: 1.6 m2 Procedure: A complete two-dimensional transthoracic echocardiogram was performed (2D, M-mode, spectral and color flow Doppler). The study was technically difficult with many images being suboptimal in quality. Reason For Study: HYPERTENSION Ordering Physician: HALLE MARTÍNEZ Performed By: Shanita Shah Interpretation Summary The study was technically difficult with many images being suboptimal in quality. The left ventricular ejection fraction is normal. There is normal left ventricular wall thickness. The left ventricle is grossly normal size. Doppler measurements suggest impaired left ventricular relaxation, which is associated with grade I/IV or mild diastolic dysfunction Wall motion cannot be accurately commented on, but no definite regional wall motion abnormalities noted. The right ventricular systolic function is normal. The right atrium is normal in size The left atrial size is normal. There is a mild amount of mitral regurgitation There is no mitral valve stenosis. No aortic regurgitation is present. There is no aortic valve stenosis There is no tricuspid stenosis. No tricuspid regurgitation. The aortic root is not well visualized. The inferior vena cava was not well visualized Minimal pericardial effusion. MMode/2D Measurements & Calculations RVDd: 2.9 cm LVIDd: 4.1 cm FS: 32.0 % Ao root diam: 2.8 cm IVSd: 0.83 cm LVIDs: 2.8 cm EDV(Teich): 73.7 ml LVPWd: 0.85 cm ESV(Teich): 29.0 ml Ao root area: 6.2 cm2 EF(Teich): 60.7 % Doppler Measurements & Calculations MV E max cielo: MV dec slope: Ao V2 max: LV V1 max P.4 cm/sec 155.1 cm/sec 4.4 mmHg MV A max cielo: 247.8 cm/sec2 Ao max PG: LV V1 max: 83.8 cm/sec MV dec time: 9.6 mmHg 105.0 cm/sec MV E/A: 0.84 0.28 sec PA V2 max: 78.3 cm/sec PA max P.5 mmHg Left Ventricle The left ventricle is grossly normal size. There is normal left ventricular wall thickness. The left ventricular ejection fraction is normal. Doppler measurements suggest impaired left ventricular relaxation, which is associated with grade I/IV or mild diastolic dysfunction. Wall motion cannot be accurately commented on, but no definite regional wall motion abnormalities noted. Right Ventricle The right ventricle is grossly normal size. There is normal right ventricular wall thickness. The right ventricular systolic function is normal. Atria The right atrium is normal in size. The left atrial size is normal. Interarterial septum not well visualized and not well dopplered. Cannot comment on ASD/PFO presence. Mitral Valve There is mild mitral annular calcification. There is no mitral valve stenosis. There is a mild amount of mitral regurgitation. Aortic Valve The aortic valve is mildly calcified. There is no aortic valve stenosis. No aortic regurgitation is present. Tricuspid Valve The tricuspid valve is not well visualized secondary to technical limitations. There is no tricuspid stenosis. No tricuspid regurgitation. Pulmonic Valve The pulmonic valve is not well visualized. Great Vessels The aortic root is not well visualized. The inferior vena cava was not well visualized. Effusions Minimal pericardial effusion. : HALLE MARTÍNEZ > Carlos Ruiz
== END ==
LOC: SP 13:04
PROVIDERS: ATTEND Physician Assistant
DX: I10 Essential (primary) hypertension (principal)
CPT/HCPCS: 93306

== ENCOUNTER → 2018-09-25 | Outpatient (CLI) | payer MEDICARE, OTHER ==
--- NOTE | 2018-09-25 13:03 | RADIOLOGY REPORT (SQ) ---
EXAM DESCRIPTION: BARIUM SWALLOW ESOPHAGUS COMPLETED DATE/TIME: 09/25/2018 9:39 am REASON FOR STUDY: DYSPHAGIA R13.10 DYSPHAGIA, UNSPECIFIED COMPARISON: None. TECHNIQUE: Under fluoroscopic guidance, patient ingested effervescent granules followed by thick and thin barium. Fluoroscopic spot images and routine radiographic images acquired and stored on PACS. 12 MM BARIUM TABLET GIVEN: The patient swallowed a 12 mm barium tablet which passed easily through th e esophagus and into the stomach without delay. LIMITATIONS: None. FLUOROSCOPY TIME: FLUORO TIME: 3 minutes 7 images saved to PACS. FINDINGS: NEUROMUSCULAR COORDINATION OF SWALLOW: Normal. No aspiration. ESOPHAGEAL MOTILITY: Normal peristalsis. No esophageal spasm. ESOPHAGEAL MUCOSA: Normal mucosa without masses or ulceration. GASTRO-ESOPHAGEAL JUNCTION: There is a small hiatal hernia present. Prominent gastroesophageal reflu x was seen, with barium refluxing to the level of the clavicles. . NON-GI TRACT STRUCTURES: No significant finding. OTHER: No other significant finding. IMPRESSION: SMALL HIATAL HERNIA WITH SIGNIFICANT GASTROESOPHAGEAL REFLUX. OTHERWISE UNREMARKABLE ST UDY. RECOMMENDATION: NONE COMMENT: NONE Quality ID 145: Final reports for procedures using fluoroscopy that document radiation exposure kath sherice, or exposure time and number of fluorographic images (if radiation exposure indices are not avail able) TECHNICAL DOCUMENTATION: JOB ID: [id number] [employer] All Rights Reserved Reading location - IP/workstation name: [email or web address]
== END ==
LOC: RAD 08:55
PROVIDERS: ATTEND Physician Assistant
DX: K21.9 Gastro-esophageal reflux disease without esophagitis (principal); K44.9 Diaphragmatic hernia without obstruction or gangrene; R13.10 Dysphagia, unspecified
CPT/HCPCS: 74220

== ENCOUNTER → 2019-07-30 | Outpatient (CLI) | payer MEDICARE, OTHER ==
--- NOTE | 2019-07-30 14:32 | WOMENS IMAGING REPORT ---
EXAM DESCRIPTION: BONE DENSITY HIP/SPINE COMPLETED DATE/TIME: 07/30/2019 1:57 pm REASON FOR STUDY: M81.0 AGE RELATED OSTEOPOROSIS Z12.31 ENCNTR SCREEN MAMMOGRAM FOR MALIGNANT NEOPL ASM OF JAMIE M81.0 AGE-RELATED OSTEOPOROSIS W/O CURRENT PATHOLOGICAL FRAC COMPARISON: 06/07/2017 TECHNIQUE: Dual-Energy X-ray Absorptiometry (DEXA) of the AP Spine and Hip. LIMITATIONS: None. FINDINGS: LUMBAR SPINE: The bone mineral density (BMD) measured from L1-L4 in the AP projection correlates with a T-score of -2.5, which is osteoporosis as defined by the World Health Organization. HIP: The bone mineral density (BMD) measured in the left hip correlates with a T-score of -3.3, which is o steoporosis as defined by the World Health Organization. IMPRESSION: 1. LUMBAR SPINE: OSTEOPOROSIS. 2. HIP: OSTEOPOROSIS. Findings in the left hip has slightly progressed when compared to baseline. There has been progressi on from the previous exam as well. There has been slight improvement in the lumbar spine. COMMENT: The World Health Organization defines low BMD as follows: T-score: Normal: Greater than -1.0 Osteopenia: Between -1.0 and -2.5 Osteoporosis: Less than -2.5 without fractures Established osteoporosis: Less than -2.5 with fractures In general, you may wish to consider: Diagnosis Treatment Follow-up DEXA Normal BMD Prevention 2-3 years Osteopenia Prevention/Therapy 1-2 years Osteoporosis Therapy Yearly TECHNICAL DOCUMENTATION: JOB ID: [id number] [employer]- All Rights Reserved Reading location - IP/workstation name: [email or web address]
--- NOTE | 2019-07-31 11:05 | WOMENS IMAGING REPORT ---
EXAM DESCRIPTION: 3D SCREENING MAMMO BILAT COMPLETED DATE/TIME: 07/30/2019 1:57 pm REASON FOR STUDY: Z12.31 SCREENING MAMMO Z12.31 ENCNTR SCREEN MAMMOGRAM FOR MALIGNANT NEOPLASM OF B RE M81.0 AGE-RELATED OSTEOPOROSIS W/O CURRENT PATHOLOGICAL FRAC COMPARISON: None. EXAM PARAMETERS: Views: Standard craniocaudal and mediolateral oblique views of each breast recorded using digital acquisition and breast tomosynthesis. Read with the assistance of CAD. .[facility] - R2 [employer] Mails Version 9.2 LIMITATIONS: None. FINDINGS: No suspicious masses, suspicious calcifications or architectural distortion. No areas of c oncern. IMPRESSION: NEGATIVE MAMMOGRAM. BIRADS 1. BREAST DENSITY: b. There are scattered areas of fibroglandular density. BIRAD: ASSESSMENT: 1 NEGATIVE RECOMMENDATION: ROUTINE SCREENING COMMENT: The patient has been notified of the results by letter per MQSA requirements. Additional no tification policies are in place for contacting patient with suspicious or incomplete findings. Quality ID #225: The [employer] recommends an annual screening mammogram for women aged 40 years or over. This facility utilizes a reminder system to ensure that all patients receive reminder letters, and/or direct phone calls for appointments. This includes reminders for routine scr eening mammograms, diagnostic mammograms, or other Breast Imaging Interventions when appropriate. Th is patient will be placed in the appropriate reminder system. TECHNICAL DOCUMENTATION: FINDING NUMBER: (1) ASSESSMENT: (1) JOB ID: [id number] [employer]- All Rights Reserved Reading location - IP/workstation name: [email or web address]
== END ==
LOC: WI 12:45
PROVIDERS: ATTEND Physician Assistant
DX: Z12.31 Encounter for screening mammogram for malignant neoplasm of breast (principal); M81.0 Age-related osteoporosis without current pathological fracture
CPT/HCPCS: 77063; 77067; 77080

== ENCOUNTER → 2019-12-08 | Outpatient (CLI) | payer MEDICARE, OTHER ==
--- NOTE | 2019-12-08 08:41 | RADIOLOGY REPORT (SQ) ---
EXAM DESCRIPTION: U/S ABD AORTIC SCREENING COMPLETED DATE/TIME: 12/08/2019 8:32 am REASON FOR STUDY: Z13.6 ENCOUNTER FOR SCREENING FOR CARDIOVASCULAR DISORDERS Z87.891 PERSONAL HISTO RY OF NICOTINE DEPENDENCE Z13.6 ENCOUNTER FOR SCREENING FOR CARDIOVASCULAR DISORDERS COMPARISON: None. TECHNIQUE: Static and dynamic grayscale images acquired of the aorta and stored on PACs. Selected co kristal Doppler and spectral images recorded. LIMITATIONS: None. FINDINGS: AORTIC CALIBER MAXIMAL PROXIMAL: 2.0 x 1.7 cm. MID: 1.5 x 1.8 cm. DISTAL: 1.7 x 2.1 cm. ILIAC DIAMETER RIGHT: 0.8 x 1.2 cm. LEFT: 1.2 x 1.2 cm. OTHER: No other significant finding. IMPRESSION: NO ABDOMINAL AORTIC ANEURYSM. COMMENT: Aortic aneurysm imaging followup: Negative, no followup necessary. *Based upon the Society for Vascular Surgery Guidelines: J Vasc Surg. 2009 Oct;50(4 Suppl):S2-49 *For aortas of maximum diameter of 2.6-2.9 cm meeting the criteria for AAA (?1.5 x proximal normal se gment) TECHNICAL DOCUMENTATION: JOB ID: [id number] [employer]- All Rights Reserved Reading location - IP/workstation name: [email or web address]
--- NOTE | 2019-12-08 10:07 | RADIOLOGY REPORT (SQ) ---
EXAM DESCRIPTION: CT LUNG CANCER SCREENING COMPLETED DATE/TIME: 12/08/2019 8:35 am REASON FOR STUDY: Z87.891 PERSONAL HISTORY OF NICOTINE DEPENDENCE Z87.891 PERSONAL HISTORY OF NICOT INE DEPENDENCE Z13.6 ENCOUNTER FOR SCREENING FOR CARDIOVASCULAR DISORDERS Has the patient had a Chest CT scan within the past year? N Was the patient offered tobacco cessation counseling? Y Was the patient engaged in shared decision making for this test? Y Does the patient have signs or symptoms of Lung Cancer? N Is the patient a smoker? Y How many pack years? 47 How many years since quitting smoking? 0 Patients age: 74 COMPARISON: None. TECHNIQUE: Low Dose CT scan performed of the chest without intravenous contrast for purposes of scre ening for lung cancer. Images reviewed with lung, soft tissue and bone windows. Reconstructed coron al and sagittal MPR images reviewed. All images stored on PACS. All CT scanners at this facility use dose modulation, iterative reconstruction, and/or weight based d osing when appropriate to reduce radiation dose to as low as reasonably achievable (ALARA). [facility]: Dose Right [facility]: CareDose [facility]: Dose Right [facility]: Teradose 4D [facility]: [employer] RADIATION DOSE: CT Rad equipment meets quality standard of care and radiation dose reduction techniq ues were employed. CTDIvol: 1.9 mGy. DLP: 75 mGy-cm. mGy. . LIMITATIONS: No technical limitations. FINDINGS: LUNG NODULES: Description: There are 2 solid subpleural nodules on the left. Size: The 1st located on series 2, image 229 measures 8.3 mm in diameter. The 2nd best demonstrated on series 2, image 243 measures 10 mm in greatest diameter. This is subpleural as well and adjacent to pericar dial fat. Both most likely represents scar but will need follow up. REMAINING LUNGS AND PLEURA: No pleural effusions or calcifications. No pneumothorax. Mild bilat eral interstitial changes most likely related to COPD. HILAR AND MEDIASTINAL STRUCTURES: Small prevascular nodes. These are nonspecific. HEART AND VASCULAR STRUCTURES: No aneurysm. No pericardial effusion. No cardiac devices. CORONARY ARTERY CALCIFICATIONS: Moderate coronary artery calcifications. UPPER ABDOMEN: No significant findings. THYROID AND OTHER SOFT TISSUES: No masses. No adenopathy. BONES: No significant finding. OTHER: No other significant findings. IMPRESSION: PROBABLY BENIGN FINDINGS IN THE LUNGS. 2 LEFT-SIDED PULMONARY NODULES DESCRIBED. TH E LARGEST MEASURES 10 MM IN DIAMETER. BOTH ARE SUBPLEURAL IN LOCATION IN THE LEFT LUNG. THIS MOST L IKELY REPRESENTS SCAR TISSUE BUT FOLLOW-UP IS WARRANTED. NO OTHER CLINICALLY SIGNIFICANT/POTENTIALLY CLINICALLY SIGNIFICANT FINDINGS LUNGRADS: LUNGRADS: 3, PROBABLY BENIGN. PROBABLY BENIGN FINDING(S)- SHORT TERM FOLLOW UP SUGGESTED; INCLUDES NODULES WITH A LOW LIKELIHOOD OF BECOMING A CLINICALLY ACTIVE CANCER. MODIFIER: NONE. RECOMMENDATION: Followup LDCT in 6 months. COMMENT: CRITERIA: Solid nodule(s): ? 6 mm to < 8 mm at baseline OR new 4 mm to < 6 mm. Part solid nodule(s): ? 6 mm total diameter with solid component < 6 mm OR new < 6 mm total diameter . Non solid nodule(s) (GGN): ? [address] or new. TECHNICAL DOCUMENTATION: JOB ID: [id number] Quality ID # [id number]: Final reports with documentation of one or more dose reduction techniques (e.g., Au tomated exposure control, adjustment of the mA and/or kV according to patient size, use of iterative reconstruction technique) 2010 [facility], [place] Rad[facility] Reading location - IP/workstation name: [email or web address]
== END ==
LOC: RAD 08:07
PROVIDERS: ATTEND Physician Assistant
DX: Z13.6 Encounter for screening for cardiovascular disorders (principal); Z09 Encounter for follow-up examination after completed treatment for conditions other than malignant neoplasm; Z87.891 Personal history of nicotine dependence; R91.8 Other nonspecific abnormal finding of lung field
CPT/HCPCS: 76706; G0297

== ENCOUNTER → 2020-06-11 | Outpatient (CLI) | payer MEDICARE, OTHER ==
[2020-06-11 12:34] VITALS: BP 141/78
--- NOTE | 2020-06-11 12:34 | ER [facility] ASSESSMENT REPORT ---
Intake - In the Last 14 days Have you traveled outside [place]?: No Have you been in close contact with someone CONFIRMED: No Worked in Healthcare?: No - Symptoms Subjective Fever(Gower feverish): No Chills: Yes Muscule Aches: No Runny Nose: Yes Sore Throat: No Cough (New or worsening chronic cough): Yes Shortness of breath: No Nausea or Vomiting: No Headache: No Abdominal Pain: No Diarrhea(3 or more loose stools in last 24 hours): Yes - Do you have any of the following Chronic lung disease: Asthma or emphysema or COPD: Yes Chronic Lung Disease Comment: copd Cystic Fibrosis: No Diabetes: No High Blood Pressure: Yes Cardiovascular Disease: Yes Chronic Kidney Disease: No Chronic Liver Disease: No Chronic blood disorder like Sickle Cell Disease: No Weak immune system due to disease or medication: No Neurologic condition that limits movement: No Developmental delay - Moderate to Severe: No Recent (within past 2 weeks) or current : No Morbid Obesity (>100 pounds over ideal weight): No - Objective Temperature: 98.4 F Pulse Rate: 64 Respiratory Rate: 20 Blood Pressure: 141/78 O2 Sat by Pulse Oximetry: 95 Objective: Given above, testing performed: If Testing Performed: Test Specimen Type Sent to General - General Information source: Patient Notes: Patient presents to the [facility] for screening for the coronavirus. Patient reports chills, runny nose and cough for the past 2 days with diarrhea. Patient does have underlying history of hypertension and COPD. Patient is a current smoker. - Related Data Allergies/Adverse Reactions: No Known Allergies Allergy (Verified 06/16/17 19:41) Past Medical History - General Information source: Patient - Social History Smoking Status: Current Every Day Smoker Family History: Reviewed & Not Pertinent - Past Medical History Cardiac Medical History: Reports: Hx Coronary Artery Disease - high cholesterol, Hx Hypercholesterolemia, Hx Hypertension Denies: Hx Heart Attack Pulmonary Medical History: Reports: Hx Bronchitis, Hx COPD Denies: Hx Asthma, Hx Pneumonia Neurological Medical History: Reports: Hx Cerebrovascular Accident - 2006. Denies: Hx Seizures Endocrine Medical History: Reports: Hx Hypothyroidism Renal/ Medical History: Denies: Hx Peritoneal Dialysis Musculoskeletal Medical History: Reports Hx Arthritis - OP, Reports Hx Musculoskeletal Trauma Traumatic Medical History: Reports: Hx Fractures Past Surgical History: Reports: Hx Orthopedic Surgery Physical Exam - Notes Notes: The patient was evaluated during the global Covid 19 pandemic, and that diagnosis was suspected/considered upon their initial presentation. Their evaluation, treatment and testing was consistent with current guidelines for patients who present with complaints or symptoms that may be related to Covid 19. Full physical exam could not be performed due to covid 19 isolation protocols. Constitutional: Nontoxic appearance, no acute distress Eyes: Nonicteric, extraocular movements intact, sclera clear Cardiovascular: Heart rate and rhythm regular, no JVD Respiratory: Faint scattered wheezing noted to right upper lobe, occasional nonproductive cough, nonlabored breathing, no use of accessory muscles, no tachypnea Gastrointestinal: Abdomen not distended Muculoskeletal: Moves all extremities well Skin: Normal color Neuro: Awake alert oriented, normal speech Psych: Normal mood and affect Diagnostic Results Laboratory Results: Patient presents with upper respiratory symptoms worrisome for possible Covid 19. Patient does not have emergency worrying symptoms such as difficulty breathing, shortness of breath, chest pain, pressure, confusion or cyanosis. Patient appears suitable for discharge as vital signs are stable and patient is nontoxic in appearance. Good return precautions have been discussed with patient, patient verbalized understanding and is agreeable with discharge plan of care at this time. Patient Education/Counseling Counseling/Education: Patient was provided with discharge information including: As a person under investigation for Covid 19, the [place] department of Health and Human Services, division of public health advises you to adhere to the following guidance until your test results are reported to you. If your test result is positive, you will receive additional information from your provider and your local health department at that time. Remain at home until you are cleared by the health provider or public health authorities. Keep a log of visitors to your home, notify any visitors to your home of your isolation status. If you plan to move to a new address or leave the county, notify the local health department in your County. Call your doctor or seek care if you have an urgent medical need. Before seeking medical care, call ahead to get instructions from the provider before arriving at the medical office clinic or hospital. Notify them that you are being tested for the virus that causes Covid 19 so that arrangements can be mad e, as necessary, to prevent transmission to others in the healthcare setting. Next, notify the local health department in your county. If a medical emergency arises and you need to call 911, inform the first responders that you are being tested for the virus that causes Covid 19. Next, notify the local health department in your county. [facility] Discharge - Discharge Clinical Impression: Encounter for screening laboratory testing for COVID-19 virus Condition: Stable Disposition: Home; Selfcare
== END ==
LOC: RDC 12:02
PROVIDERS: ATTEND Nurse Practitioner Family
DX: Z20.828 Contact with and (suspected) exposure to other viral communicable diseases (principal); R68.83 Chills (without fever); R05 Cough; R09.89 Other specified symptoms and signs involving the circulatory and respiratory systems; R19.7 Diarrhea, unspecified; J44.9 Chronic obstructive pulmonary disease, unspecified; I10 Essential (primary) hypertension; E78.00 Pure hypercholesterolemia, unspecified; F17.200 Nicotine dependence, unspecified, uncomplicated; I25.10 Atherosclerotic heart disease of native coronary artery without angina pectoris; E03.9 Hypothyroidism, unspecified
CPT/HCPCS: U0003; C9803; 87635; 99201; 99211

== ENCOUNTER → 2020-10-06 | Outpatient (CLI) | payer MEDICARE, OTHER ==
--- NOTE | 2020-10-06 13:35 | RADIOLOGY REPORT (SQ) ---
EXAM DESCRIPTION: CT CHEST WITHOUT IMAGES COMPLETED DATE/TIME: 10/06/2020 1:20 pm REASON FOR STUDY: R93.89 ABNORMAL FINDINGS ON DX IMAGING OF OT BODY STRUCTURES R93.89 ABNORMAL FIN DINGS ON DX IMAGING OF OTH BODY STRUCTURE COMPARISON: 12/08/2019 TECHNIQUE: CT scan performed of the chest without intravenous contrast. Images reviewed with lung, soft tissue and bone windows. Reconstructed coronal and sagittal MPR images reviewed. All images st ored on PACS. All CT scanners at this facility use dose modulation, iterative reconstruction, and/or weight based d osing when appropriate to reduce radiation dose to as low as reasonably achievable (ALARA). [facility]: Dose Right [facility]: CareDose [facility]: Dose Right [facility]: Teradose 4D [facility]: [employer] RADIATION DOSE: CT Rad equipment meets quality standard of care and radiation dose reduction techniq ues were employed. CTDIvol: 3.8 mGy. DLP: 157 mGy-cm. mGy. LIMITATIONS: No technical limitations. FINDINGS: LUNGS AND PLEURA: There is a ground-glass opacity in the right upper lobe with mild surrou nding airspace disease. This has cystic changes centrally allowing for differences in scan technique there has been very little change. Most likely scar related to prior infectious or inflammatory pro cess. Previous described 8.3 mm nodule has resolved and most likely related to focal airspace diseas e. The 2nd nodule previously described measured 10 mm has resolved as well. No suspicious findings at this time. No consolidation. HILAR AND MEDIASTINAL STRUCTURES: No pathologic adenopathy. HEART AND VASCULAR STRUCTURES: No aneurysm. No pericardial effusion. UPPER ABDOMEN: No significant findings. Limited exam. THYROID AND OTHER SOFT TISSUES: No masses. No adenopathy. BONES: Prior T12 kyphoplasty. HARDWARE: None in the chest. OTHER: No other significant findings. IMPRESSION: Previous described subpleural pulmonary nodules on the left have resolved. Small ground-glass opacity in the right upper lobe posteriorly with surrounding airspace disease. Th is most likely represents scar and is grossly unchanged from prior exam. This measures approximately 1.5 cm in greatest diameter. Return to routine lung screening is recommended. TECHNICAL DOCUMENTATION: JOB ID: [id number] Quality ID # [id number]: Final reports with documentation of one or more dose reduction techniques (e.g., Au tomated exposure control, adjustment of the mA and/or kV according to patient size, use of iterative reconstruction technique) 2010 [facility] [employer]- All Rights Reserved Reading location - IP/workstation name: [email or web address]
== END ==
LOC: RAD 13:04
PROVIDERS: ATTEND Physician Assistant
DX: R93.89 Abnormal findings on diagnostic imaging of other specified body structures (principal)
CPT/HCPCS: 71250

== ENCOUNTER 2020-10-08 01:02 | Inpatient (IN) | payer MEDICARE, OTHER ==
--- NOTE | 2020-10-08 01:19 | ER Document Report ---
ED Fall - General Chief Complaint: Fall Injury Stated Complaint: FALL/LEFT HIP PAIN Time Seen by Provider: 10/08/20 01:09 Notes: Patient is a 75-year-old female that comes emergency department for chief complaint of a fall. She states she was at home when she excellently tripped over a bucket, she fell and landed on her wooden floor on her left hip/pelvis area. She reports pain to this area and she was afraid to get up and walk, EMS gave her 50 mcg of fentanyl. Patient has no other complaints, she denies head injury, chest pain, back pain, incontinence, focal numbness or weakness. She is not on a blood thinner, just baby aspirin. She lives at home with her niece. TRAVEL OUTSIDE OF THE [place] IN LAST 30 DAYS: No - Related data Allergies/Adverse Reactions: No Known Allergies Allergy (Verified 10/08/20 01:06) Past Medical History - General Information source: Patient - Social History Smoking Status: Current Every Day Smoker Frequency of alcohol use: None Lives with: Alone Family History: Reviewed & Not Pertinent Patient has homicidal ideation: No - Past Medical History Cardiac Medical History: Reports: Hx Coronary Artery Disease - high cholesterol, Hx Hypercholesterolemia, Hx Hypertension Denies: Hx Heart Attack Pulmonary Medical History: Reports: Hx Bronchitis, Hx COPD Denies: Hx Asthma, Hx Pneumonia Neurological Medical History: Reports: Hx Cerebrovascular Accident - 2005. Denies: Hx Seizures Endocrine Medical History: Reports: Hx Hypothyroidism Renal/ Medical History: Denies: Hx Peritoneal Dialysis Musculoskeletal Medical History: Reports Hx Arthritis - OP, Reports Hx M usculoskeletal Trauma Traumatic Medical History: Reports: Hx Fractures Past Surgical History: Reports: Hx Orthopedic Surgery - Immunizations Immunizations up to date: Yes Hx Diphtheria, Pertussis, Tetanus Vaccination: Yes - unk Review of Systems - Review of Systems Constitutional: No symptoms reported EENT: No symptoms reported Cardiovascular: No symptoms reported Respiratory: No symptoms reported Gastrointestinal: No symptoms reported Genitourinary: No symptoms reported Female Genitourinary: No symptoms reported Musculoskeletal: See HPI Skin: No symptoms reported Hematologic/Lymphatic: No symptoms reported Neurological/Psychological: No symptoms reported Physical Exam - Vital signs Vitals: Temp Pulse Resp BP Pulse Ox 98.5 F 51 L 16 142/76 H 96 10/08/20 01:16 10/08/20 01:16 10/08/20 01:16 10/08/20 01:16 10/08/20 01:16 - Notes Notes: GENERAL: Alert, interacts well. No acute distress. HEAD: Normocephalic, atraumatic. EYES: Pupils equal, round, and reactive to light. Extraocular movements intact. ENT: Oral mucosa moist, tongue midline. Oropharynx unremarkable. Airway patent. NECK: Full range of motion. Supple. Trachea midline. No lymphadenopathy. LUNGS: Clear to auscultation bilaterally, no wheezes, rales, or rhonchi. No respiratory distress. Non-tender chest wall. HEART: Borderline bradycardia, otherwise unremarkable, no murmur ABDOMEN: Soft, non-tender. Non-distended. EXTREMITIES: There is tenderness over the left hip and groin generally although there is no obvious rotation or shortening. Distal neurovascular exam unremarkable. Unremarkable extremities otherwise. BACK: no cervical, thoracic, lumbar midline tenderness. No saddle anesthesia, normal distal neurovascular exam. Moves all extremities in full range of motion. No signs of trauma. NEUROLOGICAL: Alert and oriented x3. Normal speech. Cranial nerves II through XII grossly intact. Strength 5/5 in all extremities. PSYCH: Normal affect, normal mood. SKIN: Warm, dry, normal turgor. No rashes or lesions noted. Course - Re-evaluation Re-evalutation: Patient with a trip and mechanical fall, no other reported symptoms other than hip pain after landing on her left hip. No other signs of trauma. Otherwise unremarkable exam. X-ray imaging showing left femoral neck fracture at the left hip. Discussed with patient, will discuss with orthopedic/hospitalist for admission. Discussed with Dr. Bates, orthopedics on-call, he recommends hospitalist admission because of patient's advanced age greater than 72. Patient states understanding and agreement. Patient is much more comfortable after morphine. Preop work-up has been initiated. Discussed with Dr. Wiley, patient's primary provider, patient accepted to medical floor full admission. - Vital Signs Vital signs: Temp Pulse Resp BP Pulse Ox 98.5 F 51 L 16 142/76 H 96 10/08/20 01:16 10/08/20 01:16 10/08/20 01:16 10/08/20 01:16 10/08/20 01:16 - Laboratory Result Diagrams: 10/08/20 03:59 10/08/20 03:59 Laboratory results interpreted by me: 10/08/20 10/08/20 03:59 03:59 WBC 12.7 H RDW 14.2 H Absolute Neuts (auto) 10.1 H Seg Neutrophils % 80.1 H Glucose 117 H Discharge - Discharge Clinical Impression: Closed left hip fracture Qualifiers: Encounter type: initial encounter Qualified Code(s): S72.002A - Fracture of unspecified part of neck of left femur, initial encounter for closed fracture Fall Qualifiers: Encounter type: initial encounter Qualified Code(s): W19.XXXA - Unspecified fall, initial encounter Condition: Stable Disposition: ADMITTED INPATIENT Admitting Provider: Wiley Unit Admitted: Medical Floor
--- NOTE | 2020-10-08 02:06 | RADIOLOGY REPORT (SQ) ---
CLINICAL HISTORY: fall, left hip pain COMPARISON: None. TECHNIQUE: XR HIP 2 OR MORE VIEWS 10/08/2020 1:16 AM CASH MANAGER FINDINGS: There is an angulated intratrochanteric fracture of the left femur. There is moderate narrowing of both hip joints. Soft tissues are unremarkable. There are postoperative changes of the right femur. IMPRESSION: Left femur fracture.
[2020-10-08] MEDS ORDERED: MORPHINE SULFATE 10 MG/ML INJ IV ONE ×2 (02:26→05:41)
--- NOTE | 2020-10-08 03:06 | RADIOLOGY REPORT (SQ) ---
EXAM DESCRIPTION: XR CHEST 1 VIEW COMPLETED DATE/TME: 10/08/2020 02:45 CLINICAL HISTORY: pre-op COMPARISON: 10/06/2020 FINDINGS: Single frontal radiograph view of the chest. Cardiomediastinal silhouette: Atherosclerotic calcification of the thoracic aorta. Heart is not enlarged. Lungs: No consolidation, pneumothorax, or pleural effusion. Bones: Degenerative change of the spine and shoulders. Upper abdomen: No abnormality identified. IMPRESSION: 1. No acute pulmonary process identified.
[2020-10-08 04:20] LABS: ABSOLUTE BASOPHILS # (AUTO) 0.1 10^3/uL (0.0-0.2); ABSOLUTE EOSINOPHILS # (AUTO) 0.2 10^3/uL (0.0-0.6); ABSOLUTE LYMPHOCYTES (AUTO) 1.7 10^3/uL (0.5-4.7); ABSOLUTE MONOCYTES (AUTO) 0.5 10^3/uL (0.1-1.4); ABSOLUTE NEUT (AUTO) 10.1 10^3/uL (1.7-8.2); BASOPHILS % (AUTO) 0.7 % (0-2); EOSINOPHILS % (AUTO) 1.7 % (0-6); HEMATOCRIT 42.7 % (36.0-47.0); HEMOGLOBIN 14.4 g/dL (12.0-15.5); LYMPHOCYTES % (AUTO) 13.6 % (13-45); MEAN CORPUSCULAR HEMOGLOBIN 31.1 pg (27.0-33.4); MEAN CORPUSCULAR HGB CONC 33.6 g/dL (32.0-36.0); MEAN CORPUSCULAR VOLUME 93 fl (80-97); MONOCYTES % (AUTO) 3.9 % (3-13); PLATELET COUNT 268 10^3/uL (150-450); RED BLOOD COUNT 4.62 10^6/uL (3.72-5.28); RED CELL DISTRIBUTION WIDTH 14.2 % (11.5-14.0); SEGMENTED NEUTROPHILS % (AUTO) 80.1 % (42-78); TOTAL CELLS COUNTED % (AUTO) 100 %; WHITE BLOOD COUNT 12.7 10^3/uL (4.0-10.5)
[2020-10-08 04:25] LABS: INTERNATIONAL RATION (INR) 0.85; PROTHROMBIN TIME 11.8 SEC (11.4-15.4)
[2020-10-08 04:26] LABS: PARTIAL THROMBOPLASTIN TIME 31.4 SEC (23.5-35.8)
[2020-10-08 04:38] LABS: APPEARANCE,URINE CLEAR; BILIRUBIN,URINE NEGATIVE (NEGATIVE); COLOR,URINE YELLOW; GLUCOSE, URINE NEGATIVE (NEGATIVE); KETONES,URINE NEGATIVE (NEGATIVE); LEUKOCYTE ESTERASE,URINE NEGATIVE (NEGATIVE); NITRITE,URINE NEGATIVE (NEGATIVE); PROTEIN,URINE NEGATIVE (NEGATIVE); URINE SPECIFIC GRAVITY 1.008; UROBILINOGEN,URINE NEGATIVE mg/dL (<2.0)
[2020-10-08 04:45] LABS: ALBUMIN 4.2 g/dL (3.5-5.0); ALKALINE PHOSPHATASE 83 U/L (38-126); ANION GAP 10 (5-19); ASPARTATE AMINO TRANSFERASE 26 U/L (14-36); BILIRUBIN,DIRECT 0.2 mg/dL (0.0-0.4); BILIRUBIN,TOTAL 0.4 mg/dL (0.2-1.3); BLOOD UREA NITROGEN 14 mg/dL (7-20); CALCIUM 9.1 mg/dL (8.4-10.2); CARBON DIOXIDE 24 mmol/L (22-30); CHLORIDE 104 mmol/L (98-107); GLUCOSE 117 mg/dL (75-110); POTASSIUM 3.6 mmol/L (3.6-5.0); TOTAL PROTEIN 7.4 g/dL (6.3-8.2)
[2020-10-08] MEDS ORDERED: ONDANSETRON HCL INJ/PF 4 MG/2 ML SDV IV PRN ×2 (06:30→12:34)
[2020-10-08] MEDS ORDERED: IPRATROPIUM/ALBUTEROL 0.5-2.5 MG/3 ML AMPUL NEB PRN (06:34)
[2020-10-08] MEDS: OXYCODONE-ACETAMINOPHEN 5-325 MG TABLET PO PRN ×3 (08:19→23:29)
--- NOTE | 2020-10-08 09:05 | PDOC H&P ---
History of Present Illness Admission Date/PCP: 10/08/20 05:00 RUTH LOZADA MD Patient complains of: Fall left hip fracture History of Present Illness: MADDISON SILVA is a 75 year old female 75-year-old female with a history of hypertension hyperlipidemia osteoporosis COPD came to the emergency department for accidental fall in the bucket and landed on a wooden floor and complaining of left hip pain Patient is diagnosed with a left femoral neck fracture and patient admitting in the hospital for further evaluation and possible surgery Patient have Osteoporosis Last Bone density was done couple of years back Since denied any heart disease Patient denied any chest pain no short of breath no other symptoms Patient have a history of the stroke in the past History of the pulmonary nodules current CT scan was done this month was all stable Discussed with the patient and the family at bedside regarding the patient's current conditions Past Medical History Cardiac Medical History: Reports: Coronary Artery Disease - high cholesterol, Hyperlipidema, Hypertension Denies: Myocardial Infarction Pulmonary Medical History: Reports: Bronchitis, Chronic Obstructive Pulmonary Disease (COPD) Denies: Asthma, Pneumonia Neurological Medical History: Denies: Seizures Endocrine Medical History: Reports: Hypothyroidism Musculoskeltal Medical History: Reports: Arthritis - OP Psychiatric Medical History: Denies: Depression Hematology: Denies: Anemia Past Surgical History Past Surgical History: Reports: Orthopedic Surgery Social History Information Source: Patient Lives with: Alone Smoking Status: Current Every Day Smoker Frequency of Alcohol Use: Rare Hx Recreational Drug Use: No Hx Prescription Drug Abuse: No Family History Family History: Reviewed & Not Pertinent Parental Family History Reviewed: Yes Children Family History Reviewed: Yes Sibling(s) Family History Reviewed.: Yes Medication/Allergy Home Medications: Metoprolol Succinate 25 mg PO BID 05/03/17 Ranitidine HCl [Zantac] 25 mg PO DAILY 05/03/17 Aspirin [Aspirin 81 mg Chewable Tablet] 81 mg PO DAILY 08/09/17 Atorvastatin Calcium 10 mg PO DAILY 08/09/17 Escitalopram Oxalate [Lexapro] 10 mg PO DAILY 08/09/17 Levothyroxine Sodium [Synthroid] 125 mcg PO DAILY 08/13/17 Oxycodone HCl 5 mg PO ASDIR PRN 08/13/17 Albuterol Sulfate [Proair Hfa Inhalation Aerosol 8.5 gm Mdi] 2 puff IH Q4 PRN #1 mdi 06/11/20 Allergies/Adverse Reactions: No Known Allergies Allergy (Verified 10/08/20 01:06) Review of Systems Constitutional: ABSENT: chills, fever(s), headache(s), weight gain, weight loss Eyes: ABSENT: visual disturbances Ears: ABSENT: hearing changes Cardiovascular: ABSENT: chest pain, dyspnea on exertion, edema, orthropnea, palpitations Respiratory: ABSENT: cough, hemoptysis Gastrointestinal: ABSENT: abdominal pain, constipation, diarrhea, hematemesis, hematochezia, nausea, vomiting Genitourinary: ABSENT: dysuria, hematuria Musculoskeletal: ABSENT: joint swelling Integumentary: ABSENT: rash, wounds Neurological: ABSENT: abnormal gait, abnormal speech, confusion, dizziness, focal weakness, syncope Psychiatric: ABSENT: anxiety, depression, homidical ideation, suicidal ideation Endocrine: ABSENT: cold intolerance, heat intolerance, menstrual abnormalities, polydipsia, polyuria Hematologic/Lymphatic: ABSENT: easy bleeding, easy bruising, lymphadenopathy Physical Exam Vital Signs: Temp Pulse Resp BP Pulse Ox 98.3 F 64 17 138/78 H 95 10/08/20 06:19 10/08/20 07:00 10/08/20 06:19 10/08/20 06:19 10/08/20 06:19 Intake & Output 10/07/20 10/08/20 10/09/20 06:59 06:59 06:59 Weight 57.9 kg General appearance: PRESENT: no acute distress, well-developed, well-nourished Head exam: PRESENT: atraumatic, normocephalic Eye exam: PRESENT: conjunctiva pink, EOMI, PERRLA. ABSENT: scleral icterus Ear exam: PRESENT: normal external ear exam Mouth exam: PRESENT: moist, tongue midline Neck exam: PRESENT: full ROM. ABSENT: carotid bruit, JVD, lymphadenopathy, thyromegaly Respiratory exam: PRESENT: clear to auscultation shanita Cardiovascular exam: PRESENT: RRR. ABSENT: diastolic murmur, rubs, systolic murmur Pulses: PRESENT: normal dorsalis pedis pul, +2 pedal pulses bilateral Vascular exam: PRESENT: normal capillary refill GI/Abdominal exam: PRESENT: normal bowel sounds, soft. ABSENT: distended, guarding, mass, organolmegaly, rebound, tenderness Rectal exam: PRESENT: deferred Neurological exam: PRESENT: alert, awake, oriented to person, oriented to place, oriented to time, oriented to situation, CN II-XII grossly intact. ABSENT: motor sensory deficit Psychiatric exam: PRESENT: appropriate affect, normal mood. ABSENT: homicidal ideation, suicidal ideation Skin exam: PRESENT: dry, intact, warm. ABSENT: cyanosis, rash Results Laboratory Results: 10/08/20 03:59 10/08/20 03:59 10/08/20 10/08/20 10/08/20 03:59 03:59 03:59 WBC 12.7 H RBC 4.62 Hgb 14.4 Hct 42.7 MCV 93 MCH 31.1 MCHC 33.6 RDW 14.2 H Plt Count 268 Seg Neutrophils % 80.1 H Sodium 138.4 Potassium 3.6 Chloride 104 Carbon Dioxide 24 Anion Gap 10 BUN 14 Creatinine 0.63 Est GFR ( Amer) > 60 Glucose 117 H Calcium 9.1 Total Bilirubin 0.4 AST 26 Alkaline Phosphatase 83 Total Protein 7.4 Albumin 4.2 Urine Color YELLOW Urine Appearance CLEAR Urine pH 6.0 Ur Specific [place] 1.008 Urine Protein NEGATIVE Urine Glucose (UA) NEGATIVE Urine Ketones NEGATIVE Urine Blood NEGATIVE Urine Nitrite NEGATIVE Ur Leukocyte Esterase NEGATIVE Urine WBC (Auto) 0 Urine RBC (Auto) 1 Impressions: Hip X-Ray 10/08/20 01:16 IMPRESSION: Left femur fracture. Chest X-Ray 10/08/20 02:19 IMPRESSION: 1. No acute pulmonary process identified. Assessment & Plan - Diagnosis (1) Closed left hip fracture Qualifiers: Encounter type: initial encounter Qualified Code(s): S72.002A - Fracture of unspecified part of neck of left femur, initial encounter for closed fracture Is this a current diagnosis for this admission?: Yes Plan: Consult the orthopedic surgeons going for the surgery once the patient's clear from the Covid testing I believe (2) Fall Qualifiers: Encounter type: initial encounter Qualified Code(s): W19.XXXA - Unspecified fall, initial encounter Is this a current diagnosis for this admission?: Yes (3) Hypertension Qualifiers: Hypertension type: essential hypertension Qualified Code(s): I10 - Essential (primary) hypertension Is this a current diagnosis for this admission?: Yes Plan: Continues the current medications (4) Chronic obstructive pulmonary disease Qualifiers: COPD type: unspecified COPD Qualified Code(s): J44.9 - Chronic obstructive pulmonary disease, unspecified Is this a current diagnosis for this admission?: Yes Plan: Continues on nebulizer treatment as needed (5) Osteoporosis Qualifiers: Osteoporosis type: age-related Is this a current diagnosis for this admission?: Yes Plan: Patient is to repeat the bone density in outpatient and probably need further treatment (6) History of cerebrovascular disease Is this a current diagnosis for this admission?: Yes Plan: Continues aspirin and statin (7) Coronary disease Qualifiers: Coronary Disease-Associated Artery/Lesion type: [place] artery Associated angina: without angina Is this a current diagnosis for this admission?: Yes Plan: We will get the cardiac clearance before the procedures get the echocardiogram cardiology consult (8) Hypothyroidism Qualifiers: Hypothyroidism type: acquired Qualified Code(s): E03.9 - Hypothyroidism, unspecified Is this a current diagnosis for this admission?: Yes Plan: Continues to current medications - Time Time Spent: 30 to 50 Minutes Medications reviewed and adjusted accordingly: Yes Anticipated Discharge Disposition: Home with Home Health Anticipated Discharge Timeframe: within 72 hours - Inpatient Certification Based on my medical assessment, after consideration of the patient's comorbidities, presenting symptoms, or acuity I expect that the services needed warrant INPATIENT care.: Yes I certify that my determination is in accordance with my understanding of Medicare's requirements for reasonable and necessary INPATIENT services [42 CFR 412.3e].: Yes Medical Necessity: Significant Comorbidiites Make Outpatient Treatment Too Risky, Need For IV Fluids, Need for Surgery Post Hospital Care: D/C [employer] Documentation - Plan Summary Plan Summary: Discussed with the patient and the family at the bedside regarding the patient's current conditions
[2020-10-08] MEDS: ENOXAPARIN SODIUM INJ 40 MG/0.4 ML DISP.SYRIN SUBCUT SCH (09:10)
[2020-10-08 09:46] LABS: ANION GAP 8 (5-19); BLOOD UREA NITROGEN 13 mg/dL (7-20); CALCIUM 8.9 mg/dL (8.4-10.2); CARBON DIOXIDE 25 mmol/L (22-30); CHLORIDE 106 mmol/L (98-107); GLUCOSE 103 mg/dL (75-110); POTASSIUM 3.8 mmol/L (3.6-5.0)
[2020-10-08] MEDS: DOCUSATE SODIUM 100 MG CAPSULE PO SCH ×2 (11:03→19:02)
[2020-10-08] MEDS: FAMOTIDINE INJ/PF 20 MG/2 ML SDV IV SCH ×2 (11:03→22:25)
[2020-10-08] MEDS ORDERED: FENTANYL CITRATE INJ/PF 100 MCG/2 ML AMPUL ONE (11:28)
[2020-10-08] MEDS ORDERED: MIDAZOLAM 2 MG/2 ML INJ ONE (11:29)
--- NOTE | 2020-10-08 11:33 | XCELERA REPORT ---
[address] [address] Transthoracic Echocardiogram Report Name: JOHNMADDISON PARTIDA Age: 75 yrs Gender: Female : 1945 Patient Status: Inpatient Patient Location: [address] [place], [place] [address] Study Date: 10/08/2020 09:58 AM History: Pre-op CVS Exam Height: 61 in Weight: 127 lb BSA: 1.6 m2 Procedure: A complete two-dimensional transthoracic echocardiogram was performed (2D, M-mode, spectral and color flow Doppler). The study was technically difficult with many images being suboptimal in quality. Reason For Study: Cardiac Clearance Previous Evaluation: A previous study was performed on 11/22/2017 LVEF was normal. Ordering Physician: RUTH LOZADA Performed By: Darren Duarte Interpretation Summary The study was technically difficult with many images being suboptimal in quality. Left ventricular systolic function is normal. The Ejection Fraction estimate is 55-60% The right ventricle is normal in size and function. There is a trace amount of mitral regurgitation There is no aortic valve stenosis There is a trace amount of aortic regurgitation There is a trace amount of tricuspid regurgitation There is no pericardial effusion. MMode/2D Measurements & Calculations RVDd: 3.2 cm LVIDd: 4.6 cm FS: 42.9 % Ao root diam: 3.3 cm IVSd: 0.99 cm LVIDs: 2.6 cm EDV(Teich): 97.4 ml Ao root area: 8.6 cm2 LVPWd: 1.0 cm ESV(Teich): 25.3 ml LA dimension: 2.9 cm EF(Teich): 74.0 % Doppler Measurements & Calculations MV E max cielo: MV P1/2t max cielo: Ao V2 max: LV V1 max P.4 cm/sec 85.4 cm/sec 152.7 cm/sec 6.3 mmHg MV A max cielo: MV P1/2t: 86.4 msec Ao max P.3 mmHg LV V1 max: 99.2 cm/sec MVA(P1/2t): 2.5 cm2 125.4 cm/sec MV E/A: 0.86 MV dec slope: LV dP/dt: 1515 mmHg/s 289.4 cm/sec2 MV dec time: 0.23 sec PA V2 max: TR max cielo: MV P1/2t-pr_phl: 95.8 cm/sec 245.3 cm/sec 86.4 msec PA max PG: TR max P.1 mmHg 3.7 mmHg Left Ventricle The left ventricle is normal in size. There is mild concentric left ventricular hypertrophy. Left ventricular systolic function is normal. The Ejection Fraction estimate is 55-60%. Doppler measurements suggest impaired left ventricular relaxation, which is associated with grade I/IV or mild diastolic dysfunction. No regional wall motion abnormalities noted. Right Ventricle The right ventricle is normal in size and function. Atria The right atrium is normal. The left atrial size is normal. The interatrial septum is intact with no evidence for an atrial septal defect. There is no Doppler evidence for an interatrial shunt. Mitral Valve There is mild mitral leaflet calcification. There is mild mitral annular calcification. There is no evidence of mitral valve prolapse. There is no mitral valve stenosis. There is a trace amount of mitral regurgitation. Aortic Valve The aortic valve opens well. The aortic valve is moderately calcified. The aortic valve is sclerotic and shows some degree of functional abnormality. The aortic valve is trileaflet. There is no aortic valve stenosis. There is a trace amount of aortic regurgitation. Tricuspid Valve The tricuspid valve is normal in structure and function. There is no tricuspid stenosis. There is a trace amount of tricuspid regurgitation. Tricuspid regurgitation jet envelope not well defined to measure RV systolic pressure accurately. Pulmonic Valve The pulmonic valve is normal in structure and function. There is no pulmonic valvular stenosis. There is a trace or physiologic amount of pulmonic regurgitation. Great Vessels The aortic root is mildly dilated. The inferior vena cava appeared normal and decreased > 50% with respiration (RAP 5-10 mmHg). Effusions There is no pericardial effusion. : RUHT LOZADA Anil
[2020-10-08] MEDS ORDERED: CEFAZOLIN INJ 1 GM VIAL ONE (11:46)
--- NOTE | 2020-10-08 11:47 | PDOC CONSULTATION ---
Consultation Consult Date: 10/08/20 Attending physician:: RUTH LOZADA Provider Consulted: KITTY DAVENPORT Consult reason:: Preoperative cardiovascular assessment History of Present Illness Admission Date/PCP: 10/08/20 05:00 RUTH LOZADA MD Patient complains of: Preoperative cardiovascular assessment, left hip pain History of Present Illness: MADDISON SILVA is a 75 year old female With the following active problems 1. COPD 2. Nicotine dependence-cigarettes 3. Systemic evidence 4. Dyslipidemia Patient presents after having had an accidental fall on a wet patch of water at home while she was cleaning. She has been diagnosed with left femoral neck fracture and operative repair is being considered. Patient denies any chest pain. No prior cardiac issues whatsoever. She does report a stroke in the past but no deficits. Prior to this episode patient was quite active and there is no report to suggest effort intolerance or angina. She is easily capable of doing more than 4 mets in terms of daily activities. Excellent unfortunately continues to smoke cigarettes. Prior surgeries include right hip surgery as well as right knee surgery. The surgeries were uncomplicated and there were no issues related to anesthesia. Past medical history is as noted above significant for COPD and bronchitis. There is no familial illnesses. Past Medical History Cardiac Medical History: Reports: Coronary Artery Disease - high cholesterol, Hyperlipidema, Hypertension Denies: Myocardial Infarction Pulmonary Medical History: Reports: Bronchitis, Chronic Obstructive Pulmonary Disease (COPD) Denies: Asthma, Pneumonia Neurological Medical History: Denies: Seizures Endocrine Medical History: Reports: Hypothyroidism Musculoskeltal Medical History: Reports: Arthritis - OP Psychiatric Medical History: Denies: Depression Hematology: Denies: Anemia Past Surgical History Past Surgical History: Reports: Orthopedic Surgery Social History Lives with: Alone Smoking Status: Current Every Day Smoker Frequency of Alcohol Use: Rare Hx Recreational Drug Use: No Hx Prescription Drug Abuse: No - Advance Directive Resuscitation Status: Full Code Family History Family History: Reviewed & Not Pertinent Parental Family History Reviewed: Yes - No familial illnesses Children Family History Reviewed: NA Sibling(s) Family History Reviewed.: NA Medication/Allergy Home Medications: Aspirin [Aspirin 81 mg Chewable Tablet] 81 mg PO DAILY 08/09/17 Atorvastatin Calcium 10 mg PO QHS 08/09/17 Escitalopram Oxalate [Lexapro] 20 mg PO QHS 08/09/17 Levothyroxine Sodium [Synthroid] 125 mcg PO Q6AM 08/13/17 Albuterol Sulfate [Proair Hfa Inhalation Aerosol 8.5 gm Mdi] 2 puff IH Q4 PRN #1 mdi 06/11/20 Cetirizine HCl [Zyrtec 10 mg Tablet] 10 mg PO QHS 10/08/20 Cimetidine [Tagamet 200 mg Tablet] 200 mg PO QHS 10/08/20 Lisinopril [Zestril] 20 mg PO DAILY 10/08/20 Metoprolol Tartrate [Lopressor 100 mg Tablet] 50 mg PO Q12 10/08/20 Montelukast Sodium [Singulair 10 mg Tablet] 10 mg PO QHS 10/08/20 Multivitamin [Daily Multiple Vitamin] 1 tab PO DAILY 10/08/20 Omeprazole 20 mg PO DAILY 10/08/20 Allergies/Adverse Reactions: No Known Allergies Allergy (Verified 10/08/20 01:06) Review of Systems Constitutional: PRESENT: as per HPI Breasts: ABSENT: as per HPI, other Cardiovascular: ABSENT: as per HPI, chest pain, dyspnea on exertion, edema, orthropnea, palpitations, other Respiratory: ABSENT: as per HPI, cough, dyspnea, hemoptysis, sputum, other Gastrointestinal: ABSENT: as per HPI, abdominal pain, bloating, coffee ground emesis, constipation, diarrhea, dysphagia, heartburn, hematemesis, hematochezia, melena, nausea, vomiting, other Neurological: PRESENT: other Endocrine: ABSENT: as per HPI, cold intolerance - Prior stroke with no deficits, flushing, heat intolerance, menstrual abnormalities, polydipsia, polyphagia, polyuria, other Physical Exam Vital Signs: Temp Pulse Resp BP Pulse Ox 98.8 F 66 16 129/67 H 94 10/08/20 11:34 10/08/20 11:34 10/08/20 11:34 10/08/20 11:34 10/08/20 11:34 Intake & Output 10/07/20 10/08/20 10/09/20 06:59 06:59 06:59 Weight 57.9 kg Results Laboratory Results: 10/08/20 03:59 10/08/20 08:49 10/08/20 10/08/20 10/08/20 03:59 03:59 03:59 WBC 12.7 H RBC 4.62 Hgb 14.4 Hct 42.7 MCV 93 MCH 31.1 MCHC 33.6 RDW 14.2 H Plt Count 268 Seg Neutrophils % 80.1 H Sodium 138.4 Potassium 3.6 Chloride 104 Carbon Dioxide 24 Anion Gap 10 BUN 14 Creatinine 0.63 Est GFR ( Amer) > 60 Glucose 117 H Calcium 9.1 Total Bilirubin 0.4 AST 26 Alkaline Phosphatase 83 Total Protein 7.4 Albumin 4.2 Urine Color YELLOW Urine Appearance CLEAR Urine pH 6.0 Ur Specific [place] 1.008 Urine Protein NEGATIVE Urine Glucose (UA) NEGATIVE Urine Ketones NEGATIVE Urine Blood NEGATIVE Urine Nitrite NEGATIVE Ur Leukocyte Esterase NEGATIVE Urine WBC (Auto) 0 Urine RBC (Auto) 1 10/08/20 08:49 WBC RBC Hgb Hct MCV MCH MCHC RDW Plt Count Seg Neutrophils % Sodium 138.9 Potassium 3.8 Chloride 106 Carbon Dioxide 25 Anion Gap 8 BUN 13 Creatinine 0.53 Est GFR ( Amer) > 60 Glucose 103 Calcium 8.9 Total Bilirubin AST Alkaline Phosphatase Total Protein Albumin Urine Color Urine Appearance Urine pH Ur Specific [place] Urine Protein Urine Glucose (UA) Urine Ketones Urine Blood Urine Nitrite Ur Leukocyte Esterase Urine WBC (Auto) Urine RBC (Auto) EKG Comments: Transthoracic echocardiogram 10/08/2020. Sclerotic aortic and mitral valves without any stenosis or significant regurgitation Left ventricular ejection fraction is preserved. RV function is also preserved. No chamber dilatation. Twelve-lead EKG 10/08/2020. The 3 AM. Independently viewed by me. Sinus bradycardia, 56 bpm, premature atrial complex, normal AV conduction, QTC is 475 ms. Hemoglobin is 14.4 white count is 12.7 platelet count 268 hematocrit is 42.7 Creatinine is 0.53 Chest x-ray 10/08/2020 No acute pulmonary process. Impressions: Hip X-Ray 10/08/20 01:16 IMPRESSION: Left femur fracture. Chest X-Ray 10/08/20 02:19 IMPRESSION: 1. No acute pulmonary process identified. Assessment & Plan - Diagnosis (1) Preop cardiovascular exam Is this a current diagnosis for this admission?: Yes Plan: Patient is an acceptable risk for planned surgery without further restratification Her echocardiogram shows preserved left ventricular ejection fraction. Aortic and mitral valves are sclerotic but with no significant lesions that are regurgitant or stenotic. PA pressure is difficult to estimate but is likely normal. There is no pericardial effusion EKG without conduction disease and sinus rhythm is noted She is easily able to do more than 4 mets in terms of daily activities. Prior surgeries have also been uncomplicated in terms of anesthesia and recovery. Continue watching blood pressure perioperatively. Continue home agents. Aspirin therapy can be interrupted for surgery if necessary (2) Hypertension Qualifiers: Hypertension type: essential hypertension Qualified Code(s): I10 - Essential (primary) hypertension Is this a current diagnosis for this admission?: Yes Plan: Watch blood pressure. Continue home therapy perioperatively.
--- NOTE | 2020-10-08 12:10 | PDOC CONSULTATION ---
Consultation Consult Date: 10/08/20 Provider Consulted: SILVIO YANCEY JR History of Present Illness Admission Date/PCP: 10/08/20 05:00 RUTH LOZADA MD History of Present Illness: MADDISON SILVA is a 75 year old female who presents after an accident fall at home landing onto her left hip. She had immediate left hip pain, aching in nature, 8 out of 10, worse with motion up to 10 out of 10, nonradiating, as well as the inability to ambulate. Pain is improved with pain control and rest. She has a history of osteoporosis and fracture of the right hip. She denies presyncopal symptoms or symptoms leading up to her fall, reports tripping. She denies prior hip pain. She denies associated injury. She does have a headache at this time. Past Medical History Cardiac Medical History: Reports: Coronary Artery Disease - high cholesterol, Hyperlipidema, Hypertension Denies: Myocardial Infarction Pulmonary Medical History: Reports: Bronchitis, Chronic Obstructive Pulmonary Disease (COPD) Denies: Asthma, Pneumonia Neurological Medical History: Denies: Seizures Endocrine Medical History: Reports: Hypothyroidism Musculoskeltal Medical History: Reports: Arthritis - OP Psychiatric Medical History: Denies: Depression Hematology: Denies: Anemia Past Surgical History Past Surgical History: Reports: Orthopedic Surgery Social History Lives with: Alone Smoking Status: Current Every Day Smoker Frequency of Alcohol Use: Rare Hx Recreational Drug Use: No Hx Prescription Drug Abuse: No - Advance Directive Resuscitation Status: Full Code Family History Family History: Reviewed & Not Pertinent Parental Family History Reviewed: No Children Family History Reviewed: NA Sibling(s) Family History Reviewed.: NA Medication/Allergy Home Medications: Aspirin [Aspirin 81 mg Chewable Tablet] 81 mg PO DAILY 08/09/17 Atorvastatin Calcium 10 mg PO QHS 08/09/17 Escitalopram Oxalate [Lexapro] 20 mg PO QHS 08/09/17 Levothyroxine Sodium [Synthroid] 125 mcg PO Q6AM 08/13/17 Albuterol Sulfate [Proair Hfa Inhalation Aerosol 8.5 gm Mdi] 2 puff IH Q4 PRN #1 mdi 06/11/20 Cetirizine HCl [Zyrtec 10 mg Tablet] 10 mg PO QHS 10/08/20 Cimetidine [Tagamet 200 mg Tablet] 200 mg PO QHS 10/08/20 Lisinopril [Zestril] 20 mg PO DAILY 10/08/20 Metoprolol Tartrate [Lopressor 100 mg Tablet] 50 mg PO Q12 10/08/20 Montelukast Sodium [Singulair 10 mg Tablet] 10 mg PO QHS 10/08/20 Multivitamin [Daily Multiple Vitamin] 1 tab PO DAILY 10/08/20 Omeprazole 20 mg PO DAILY 10/08/20 Allergies/Adverse Reactions: No Known Allergies Allergy (Verified 10/08/20 01:06) Review of Systems Review of Systems: Constitutional: ABSENT: anorexia, chills, night sweats Cardiovascular: ABSENT: chest pain Respiratory: ABSENT: dyspnea Gastrointestinal: ABSENT: vomiting Genitourinary: ABSENT: dysuria Integumentary: ABSENT: rash Neurological: ABSENT: confusion, memory loss, numbness, positive for headache Psychiatric: ABSENT: hallucinations Hematologic/Lymphatic: ABSENT: easy bleeding Physical Exam Vital Signs: Temp Pulse Resp BP Pulse Ox 98.8 F 66 16 129/67 H 94 10/08/20 11:34 10/08/20 11:34 10/08/20 11:34 10/08/20 11:34 10/08/20 11:34 Intake & Output 10/07/20 10/08/20 10/09/20 06:59 06:59 06:59 Weight 57.9 kg Physical Exam: General appearance: PRESENT: no acute distress, cooperative, well-nourished Head exam: PRESENT: atraumatic, normocephalic Eye exam: PRESENT: EOMI Ear exam: PRESENT: normal external ear exam Mouth exam: PRESENT: neck supple Neck exam: ABSENT: tracheal deviation Respiratory exam: PRESENT: symmetrical, unlabored. ABSENT: accessory muscle use, wheezes Pulses: PRESENT: normal radial pulses, normal dorsalis pedis pulse Vascular exam: PRESENT: normal capillary refill GI/Abdominal exam: ABSENT: distended, firm Extremities exam: PRESENT: full ROM of bilateral shoulders, elbows wrists, knees, hips and ankles without pain Musculoskeletal exam: PRESENT: full ROM, normal inspection of all 4 extremities aside from that noted below. Neurological exam: PRESENT: alert, awake, oriented to person, oriented to place, oriented to time Psychiatric exam: PRESENT: appropriate affect. ABSENT: agitated Focused psych exam: ABSENT: catatonic Skin exam: PRESENT: intact. ABSENT: dry All as above aside from that noted in the HPI and the following: Left lower extremity -Pulses 2+ distally -Compartments soft -Sensation grossly intact to L3-4-5 S1 -Motor grossly intact to EHL TA gastroc and quad Leg externally rotated and shortened. Results Laboratory Results: 10/08/20 03:59 10/08/20 08:49 10/08/20 10/08/20 10/08/20 03:59 03:59 03:59 WBC 12.7 H RBC 4.62 Hgb 14.4 Hct 42.7 MCV 93 MCH 31.1 MCHC 33.6 RDW 14.2 H Plt Count 268 Seg Neutrophils % 80.1 H Sodium 138.4 Potassium 3.6 Chloride 104 Carbon Dioxide 24 Anion Gap 10 BUN 14 Creatinine 0.63 Est GFR ( Amer) > 60 Glucose 117 H Calcium 9.1 Total Bilirubin 0.4 AST 26 Alkaline Phosphatase 83 Total Protein 7.4 Albumin 4.2 Urine Color YELLOW Urine Appearance CLEAR Urine pH 6.0 Ur Specific [place] 1.008 Urine Protein NEGATIVE Urine Glucose (UA) NEGATIVE Urine Ketones NEGATIVE Urine Blood NEGATIVE Urine Nitrite NEGATIVE Ur Leukocyte Esterase NEGATIVE Urine WBC (Auto) 0 Urine RBC (Auto) 1 10/08/20 08:49 WBC RBC Hgb Hct MCV MCH MCHC RDW Plt Count Seg Neutrophils % Sodium 138.9 Potassium 3.8 Chloride 106 Carbon Dioxide 25 Anion Gap 8 BUN 13 Creatinine 0.53 Est GFR ( Amer) > 60 Glucose 103 Calcium 8.9 Total Bilirubin AST Alkaline Phosphatase Total Protein Albumin Urine Color Urine Appearance Urine pH Ur Specific [place] Urine Protein Urine Glucose (UA) Urine Ketones Urine Blood Urine Nitrite Ur Leukocyte Esterase Urine WBC (Auto) Urine RBC (Auto) Impressions: Hip X-Ray 10/08/20 01:16 IMPRESSION: Left femur fracture. Chest X-Ray 10/08/20 02:19 IMPRESSION: 1. No acute pulmonary process identified. Assessment & Plan - Diagnosis (1) Intertrochanteric fracture of left hip Is this a current diagnosis for this admission?: Yes Plan: Ancef on-call for OR Nonweightbearing Plan for OR today Keep n.p.o. After surgery today patient will be made weightbearing as tolerated. Change dressings as needed Encourage out of bed Remove Kaur catheter Suggest aspirin 325 p.o. daily for DVT prophylaxis for 6 weeks Physical therapy and Occupational Therapy Discharge planning Multimodal pain control 2 g of Ancef x2 doses postoperatively.
[2020-10-08] MEDS ORDERED: OXYCODONE-ACETAMINOPHEN 5-325 MG TABLET PO PRN ×2 (12:34)
[2020-10-08] MEDS ORDERED: PROMETHAZINE HCL INJ 25 MG/1 ML VIAL IV PRN ×2 (12:34)
[2020-10-08] MEDS ORDERED: DIPHENHYDRAMINE HCL 50 MG/ML VIAL IV PRN (12:34)
[2020-10-08] MEDS ORDERED: FENTANYL CITRATE INJ/PF 100 MCG/2 ML AMPUL IV PRN ×3 (12:34)
[2020-10-08] MEDS ORDERED: MEPERIDINE HCL/PF INJ 25 MG/1 ML DISP.SYRIN IV PRN (12:34)
[2020-10-08] MEDS ORDERED: MORPHINE SULFATE 10 MG/ML INJ IV PRN (12:34)
--- NOTE | 2020-10-08 13:14 | Operative Report ---
Operative Report DATE OF SURGERY: 10/08/20 PREOPERATIVE DIAGNOSIS: Left intertrochanteric fracture. POSTOPERATIVE DIAGNOSIS: Left intertrochanteric hip fracture OPERATION: Short left cephalomedullary nail SURGEON: SILVIO YANCEY JR ANESTHESIA: Spinal COMPLICATIONS: None ESTIMATED BLOOD LOSS: 150 cc PROCEDURE: Patient was brought in operating suite and provided with spinal anesthesia. They were then transferred to the traction table and placed supine. They are then appropriately positioned. 2 g Ancef was provided preoperatively. After appropriate positioning fluoroscopy was used to assist in obtaining fracture reduction in conjunction with manipulating the fracture table. After near- anatomic reduction the right lower extremity was then prepped and draped in standard sterile fashion. An appropriate timeout was performed and the site was marked and planned with the assistance of fluoroscopy. A proximal incision was made proximal to the greater trochanter which was gently carried through the abductor fascia. A guidewire was then inserted and evaluated under fluoroscopy to be centered in the femoral canal as well as at the tip of the greater trochanter. After adequate positioning of the guidewire, a reamer was used over the guidewire in order to open the canal for insertion of the short nail. A 11 x 125 nail was selected. This was then introduced over the guidewire and impacted in place under fluoroscopy to ensure appropriate positioning and depth. After this a trocar was placed for the femoral screw through the guide. In accordance with the positioning of the trocar, an incision was made laterally and then carried through the deep fascia to allow passage of the trocar to the bone. The trocar was then gently approximated to bone followed by introduction of a guidewire. This guidewire was then advanced into the femoral neck. AP and lateral views were checked to ensure appropriate positioning of the guidewire and the femoral neck. This was then advanced to near center center of the femoral head. After doing this the wire was measured to a 95. We then removed the inner liner of the trocar and inserted a reamer at the appropriate depth. We reamed under fluoroscopy to ensure appropriate positioning of the reamer and appropriate depth measurement. After this the hip screw was selected and advanced over the guidewire again carefully checking on fluoroscopy to ensure that we advanced to the appropriate depth. Upon doing so, we then compressed the fracture through the hip screw. A proximal locking screw was placed in the superior nail. We then turned our attention to the distal interlocking screw. A trocar was advanced through the guide and an incision was made with the appropriate position and carried again through the deep fascia. This trocar was then introduced to the bone. Under fluoroscopy the distal interlock was drilled and the depth was measured. Unfortunately, somehow the drill through the trocar missed the whole and the distal nail and on the lateral view we realized that the screw was posterior to the nail. We then removed the screw and got perfect circles for distal screw insertion. Using this technique we were able to pass the drill bit through the nail under fluoroscopic guidance followed by correct application of the distal screw which was then confirmed on AP and lateral views. After this the guides were then removed and final fluoroscopy was taken. The wounds were then copiously irrigated with sterile saline solution with dilute Betadine. 2-0 Monocryl was used to close the fascia followed by inverted interrupted 2-0 Monocryl in the subcutaneous tissue followed by earnestine superficially. Sterile dressings were then placed the patient was then awakened from anesthesia and transferred to PACU in stable condition.
--- NOTE | 2020-10-08 13:47 | RADIOLOGY REPORT (SQ) ---
EXAM DESCRIPTION: HIP LEFT AP/LATERAL; NO CHG FLUORO IMAGES COMPLETED DATE/TIME: 10/08/2020 1:37 pm REASON FOR STUDY: LEFT HIP ORIF ASSISTED WITH FLUORO IN OR COMPARISON: None. FLUOROSCOPY TIME: 1.5 minutes Spot images saved to PACS. TECHNIQUE: Intra-operative images acquired during surgical procedure to evaluate progress. NUMBER OF IMAGES: 8 LIMITATIONS: None. FINDINGS: Fluoroscopy was provided for intraoperative procedure. Please refer to the operative repo rt further discussion. IMPRESSION: IMAGE(S) OBTAINED DURING PROCEDURE. COMMENT: Quality ID 145: Final reports for procedures using fluoroscopy that document radiation exp osure indices, or exposure time and number of fluorographic images (if radiation exposure indices are not available) Please consult full operative report of the attending physician for description of the procedure. TECHNICAL DOCUMENTATION: JOB ID: [id number] 2010 [employer]- All Rights Reserved Reading location - IP/workstation name: [email or web address]
--- NOTE | 2020-10-08 13:47 | RADIOLOGY REPORT (SQ) ---
EXAM DESCRIPTION: HIP LEFT AP/LATERAL; NO CHG FLUORO IMAGES COMPLETED DATE/TIME: 10/08/2020 1:37 pm REASON FOR STUDY: LEFT HIP ORIF ASSISTED WITH FLUORO IN OR COMPARISON: None. FLUOROSCOPY TIME: 1.5 minutes Spot images saved to PACS. TECHNIQUE: Intra-operative images acquired during surgical procedure to evaluate progress. NUMBER OF IMAGES: 8 LIMITATIONS: None. FINDINGS: Fluoroscopy was provided for intraoperative procedure. Please refer to the operative repo rt further discussion. IMPRESSION: IMAGE(S) OBTAINED DURING PROCEDURE. COMMENT: Quality ID [id number]: Final reports for procedures using fluoroscopy that document radiation exp osure indices, or exposure time and number of fluorographic images (if radiation exposure indices are not available) Please consult full operative report of the attending physician for description of the procedure. TECHNICAL DOCUMENTATION: JOB ID: [id number] 2010 [employer]- All Rights Reserved Reading location - IP/workstation name: [email or web address]
[2020-10-08] MEDS ORDERED: CEFAZOLIN 2 GM/D5W RTU 2 GM/50 ML RTUPB IV SCH (14:00)
[2020-10-08] MEDS: ACETAMINOPHEN 325 MG TABLET PO PRN (15:20)
[2020-10-08] MEDS ORDERED: METOPROLOL TARTRATE 100 MG TABLET PO SCH (22:00)
[2020-10-08] MEDS: CEFAZOLIN SODIUM 2 GM in DEXTROSE 5%-WATER 100 ML IV SCH (22:22)
[2020-10-08] MEDS: METOPROLOL TARTRATE 50 MG TABLET PO SCH (22:23)
[2020-10-08] MEDS: CETIRIZINE 10 MG TABLET PO SCH (22:23)
[2020-10-08] MEDS: ATORVASTATIN CALCIUM 10 MG TABLET PO SCH (22:23)
[2020-10-08] MEDS: MONTELUKAST SODIUM 10 MG TABLET PO SCH (22:24)
[2020-10-08] MEDS: ESCITALOPRAM OXALATE 10 MG TABLET PO SCH (22:24)
[2020-10-09] MEDS: CEFAZOLIN SODIUM 2 GM in DEXTROSE 5%-WATER 100 ML IV SCH (04:40)
[2020-10-09] MEDS ORDERED: (PENDING PHARMACY ID) (Levothyroxine Sodium [Synthroid] 125 MCG) PO SCH (06:00)
[2020-10-09] MEDS: LEVOTHYROXINE SODIUM 0.025 MG TABLET PO SCH (06:02)
[2020-10-09] MEDS: OXYCODONE-ACETAMINOPHEN 5-325 MG TABLET PO PRN ×3 (06:02→19:29)
[2020-10-09] MEDS: LEVOTHYROXINE SODIUM 0.1 MG TABLET PO SCH (06:02)
[2020-10-09 07:50] LABS: ANION GAP 9 (5-19); BLOOD UREA NITROGEN 9 mg/dL (7-20); CARBON DIOXIDE 22 mmol/L (22-30); CHLORIDE 105 mmol/L (98-107); GLUCOSE 123 mg/dL (75-110); POTASSIUM 3.5 mmol/L (3.6-5.0)
[2020-10-09 08:09] LABS: ABSOLUTE EOSINOPHILS # (AUTO) 0.2 10^3/uL (0.0-0.6); ABSOLUTE LYMPHOCYTES (AUTO) 2.7 10^3/uL (0.5-4.7); ABSOLUTE MONOCYTES (AUTO) 0.9 10^3/uL (0.1-1.4); ABSOLUTE NEUT (AUTO) 3.6 10^3/uL (1.7-8.2); BASOPHILS % (AUTO) 0.5 % (0-2); EOSINOPHILS % (AUTO) 3.1 % (0-6); HEMATOCRIT 34.9 % (36.0-47.0); LYMPHOCYTES % (AUTO) 36.1 % (13-45); MEAN CORPUSCULAR HEMOGLOBIN 31.4 pg (27.0-33.4); MEAN CORPUSCULAR HGB CONC 33.7 g/dL (32.0-36.0); MEAN CORPUSCULAR VOLUME 93 fl (80-97); MONOCYTES % (AUTO) 11.6 % (3-13); PLATELET COUNT 216 10^3/uL (150-450); RED BLOOD COUNT 3.74 10^6/uL (3.72-5.28); SEGMENTED NEUTROPHILS % (AUTO) 48.7 % (42-78); TOTAL CELLS COUNTED % (AUTO) 100 %; WHITE BLOOD COUNT 7.4 10^3/uL (4.0-10.5)
[2020-10-09 08:12] LABS: HEMOGLOBIN 11.8 g/dL (12.0-15.5)
--- NOTE | 2020-10-09 08:41 | PDOC PROGRESS REPORT ---
Subjective Date:: 10/09/20 Subjective:: Patient doing well this morning. Reports adequate pain control. No acute event s overnight. Reason For Visit: HIP FXHE Physical Exam Vital Signs: Temp Pulse Resp BP Pulse Ox 99.0 F 62 18 138/64 H 97 10/09/20 00:00 10/09/20 07:00 10/09/20 00:00 10/09/20 00:00 10/09/20 00:00 Intake & Output 10/08/20 10/09/20 10/10/20 06:59 06:59 06:59 Intake Total 1205 Output Total 600 Balance 605 Weight 57.9 kg 62.9 kg Physical Exam: No acute distress, alert and orient x3 Left lower extremity -Pulses 2+ distally -Compartments soft -Sensation grossly intact to L3-4-5 S1 -Motor grossly intact to EHL TA gastroc and quad Dressings clean dry and intact Results Laboratory Results: 10/09/20 06:30 10/09/20 06:30 10/08/20 10/09/20 10/09/20 08:49 06:30 06:30 WBC 7.4 RBC 3.74 Hgb 11.8 L D Hct 34.9 L MCV 93 MCH 31.4 MCHC 33.7 RDW 14.0 Plt Count 216 Seg Neutrophils % 48.7 Sodium 138.9 135.9 L Potassium 3.8 3.5 L Chloride 106 105 Carbon Dioxide 25 22 Anion Gap 8 9 BUN 13 9 Creatinine 0.53 0.57 Est GFR ( Amer) > 60 > 60 Glucose 103 123 H Calcium 8.9 8.0 L Impressions: Fluoroscopy 10/08/20 00:00 IMPRESSION: IMAGE(S) OBTAINED DURING PROCEDURE. Hip X-Ray 10/08/20 01:16 IMPRESSION: Left femur fracture. Chest X-Ray 10/08/20 02:19 IMPRESSION: 1. No acute pulmonary process identified. Assessment & Plan - Diagnosis (1) Intertrochanteric fracture of left hip Is this a current diagnosis for this admission?: Yes Plan: - 2 doses of Ancef postoperatively q 8 hours to complete 24 hours perioperatively -Weightbearing as tolerated, no precautions, encourage out of bed ANTIONETTE for ADL training - PT/OT -aspirin 325 daily for DVT prophylaxis for 6 weeks -multimodal pain management to avoid excessive narcotics, including gabapentin, tramadol, Toradol, acetaminophen. -Dressing should not be removed for 7 to 10 days until seen in the office -May shower with the dressing intact, if it starts to come off she should not get the incision wet. -Follow-up with Dr. Cade Bates, orthopedic surgeon at [facility] for surgery, in 10 days. Call for an appointment. . [address], [place] [address] - Time Time Spent with patient: Less than 15 minutes
--- NOTE | 2020-10-09 09:23 | EKG REPORT ---
SEVERITY:- OTHERWISE NORMAL ECG - SINUS RHYTHM ATRIAL PREMATURE COMPLEX : Confirmed by: Carlos Ruiz 09-Oct-2020 09:23:17
[2020-10-09] MEDS ORDERED: (PENDING PHARMACY ID) (Lisinopril [Zestril] 20 MG) PO SCH (10:00)
[2020-10-09] MEDS: LISINOPRIL 10 MG TABLET PO SCH (10:24)
[2020-10-09] MEDS: ASPIRIN 325 MG TABLET PO SCH (10:24)
[2020-10-09] MEDS: METOPROLOL TARTRATE 50 MG TABLET PO SCH ×2 (10:24→22:24)
[2020-10-09] MEDS: DOCUSATE SODIUM 100 MG CAPSULE PO SCH ×2 (10:25→17:00)
[2020-10-09] MEDS: ENOXAPARIN SODIUM INJ 40 MG/0.4 ML DISP.SYRIN SUBCUT SCH (10:25)
[2020-10-09] MEDS: FAMOTIDINE INJ/PF 20 MG/2 ML SDV IV SCH ×2 (10:25→22:24)
[2020-10-09] MEDS: ACETAMINOPHEN 325 MG TABLET PO PRN (10:27)
[2020-10-09] MEDS: ASPIRIN 81 MG TABLET, CHEWABLE PO SCH (10:28)
--- NOTE | 2020-10-09 11:36 | PDOC PROGRESS REPORT ---
Subjective Date:: 10/09/20 Subjective:: Doing well post surgery. Reason For Visit: HIP FXHE Doing well post surgery. Physical Exam Vital Signs: Temp Pulse Resp BP Pulse Ox 99.0 F 63 18 126/64 H 93 10/09/20 08:20 10/09/20 07:50 10/09/20 07:50 10/09/20 07:50 10/09/20 07:50 Intake & Output 10/08/20 10/09/20 10/10/20 06:59 06:59 06:59 Intake Total 1205 Output Total 600 Balance 605 Weight 57.9 kg 62.9 kg General appearance: PRESENT: no acute distress, cooperative, well-developed, well-nourished Head exam: PRESENT: atraumatic, normocephalic Eye exam: PRESENT: conjunctiva pink, EOMI Mouth exam: PRESENT: moist Respiratory exam: PRESENT: crackles, symmetrical, unlabored Cardiovascular exam: PRESENT: RRR, +S1, +S2 Pulses: PRESENT: normal radial pulses GI/Abdominal exam: PRESENT: soft Rectal exam: PRESENT: deferred Neurological exam: PRESENT: alert, awake, oriented to person, oriented to place, oriented to time, oriented to situation Psychiatric exam: PRESENT: appropriate affect Skin exam: PRESENT: dry, intact, normal color Results Laboratory Results: 10/09/20 06:30 10/09/20 06:30 10/09/20 10/09/20 06:30 06:30 WBC 7.4 RBC 3.74 Hgb 11.8 L D Hct 34.9 L MCV 93 MCH 31.4 MCHC 33.7 RDW 14.0 Plt Count 216 Seg Neutrophils % 48.7 Sodium 135.9 L Potassium 3.5 L Chloride 105 Carbon Dioxide 22 Anion Gap 9 BUN 9 Creatinine 0.57 Est GFR ( Amer) > 60 Glucose 123 H Calcium 8.0 L Impressions: Fluoroscopy 10/08/20 00:00 IMPRESSION: IMAGE(S) OBTAINED DURING PROCEDURE. Hip X-Ray 10/08/20 01:16 IMPRESSION: Left femur fracture. Chest X-Ray 10/08/20 02:19 IMPRESSION: 1. No acute pulmonary process identified. Assessment & Plan - Diagnosis (1) Hypertension Qualifiers: Hypertension type: essential hypertension Qualified Code(s): I10 - Essential (primary) hypertension Is this a current diagnosis for this admission?: Yes Plan: Continue to watch the blood pressure Continue oral regimen as at home. No added salt in the diet. (2) Closed left hip fracture Qualifiers: Encounter type: initial encounter Qualified Code(s): S72.002A - Fracture of unspecified part of neck of left femur, initial encounter for closed fracture Is this a current diagnosis for this admission?: Yes Plan: Has tolerated surgery well. Postop instructions reviewed. Regular follow-up No cardiac issues at the moment.
--- NOTE | 2020-10-09 14:43 | PDOC PROGRESS REPORT ---
Subjective Date:: 10/09/20 Subjective:: Patient seen by the bedside, status post ORIF Reason For Visit: HIP FXHE Physical Exam Vital Signs: Temp Pulse Resp BP Pulse Ox 99.0 F 62 19 133/69 H 95 10/09/20 11:47 10/09/20 11:47 10/09/20 11:47 10/09/20 11:47 10/09/20 11:47 Intake & Output 10/08/20 10/09/20 10/10/20 06:59 06:59 06:59 Intake Total 1205 240 Output Total 600 250 Balance 605 -10 Weight 57.9 kg 62.9 kg General appearance: PRESENT: no acute distress Eye exam: PRESENT: PERRLA Respiratory exam: PRESENT: clear to auscultation shanita Cardiovascular exam: PRESENT: +S1, +S2 GI/Abdominal exam: PRESENT: soft Neurological exam: PRESENT: alert Results Laboratory Results: 10/09/20 06:30 10/09/20 06:30 10/09/20 10/09/20 06:30 06:30 WBC 7.4 RBC 3.74 Hgb 11.8 L D Hct 34.9 L MCV 93 MCH 31.4 MCHC 33.7 RDW 14.0 Plt Count 216 Seg Neutrophils % 48.7 Sodium 135.9 L Potassium 3.5 L Chloride 105 Carbon Dioxide 22 Anion Gap 9 BUN 9 Creatinine 0.57 Est GFR ( Amer) > 60 Glucose 123 H Calcium 8.0 L Impressions: Fluoroscopy 10/08/20 00:00 IMPRESSION: IMAGE(S) OBTAINED DURING PROCEDURE. Hip X-Ray 10/08/20 01:16 IMPRESSION: Left femur fracture. Chest X-Ray 10/08/20 02:19 IMPRESSION: 1. No acute pulmonary process identified. Assessment & Plan - Diagnosis (1) Displaced intertrochanteric fracture of left femur, initial encounter for closed fracture Is this a current diagnosis for this admission?: Yes Plan: continue treatment (2) Atherosclerotic heart disease of [place] coronary artery without angina pectoris Qualifiers: [place] vs. transplanted heart: [place] heart Qualified Code(s): I25.10 - Atherosclerotic heart disease of [place] coronary artery without angina pectoris Is this a current diagnosis for this admission?: Yes - Time Time Spent with patient: Less than 15 minutes Level of Care: IMCU Anticipated discharge: Home Anticipated DC Timeframe: within 72 hours
[2020-10-09] MEDS: NORMAL SALINE 1000 ML 1,000 ML IV PRN (16:51)
[2020-10-09] MEDS: ESCITALOPRAM OXALATE 10 MG TABLET PO SCH (22:24)
[2020-10-09] MEDS: CETIRIZINE 10 MG TABLET PO SCH (22:24)
[2020-10-09] MEDS: ATORVASTATIN CALCIUM 10 MG TABLET PO SCH (22:24)
[2020-10-09] MEDS: MONTELUKAST SODIUM 10 MG TABLET PO SCH (22:24)
[2020-10-10 06:13] LABS: ABSOLUTE BASOPHILS # (AUTO) 0.1 10^3/uL (0.0-0.2); ABSOLUTE EOSINOPHILS # (AUTO) 0.5 10^3/uL (0.0-0.6); ABSOLUTE LYMPHOCYTES (AUTO) 1.8 10^3/uL (0.5-4.7); ABSOLUTE MONOCYTES (AUTO) 0.8 10^3/uL (0.1-1.4); ABSOLUTE NEUT (AUTO) 5.2 10^3/uL (1.7-8.2); BASOPHILS % (AUTO) 0.8 % (0-2); EOSINOPHILS % (AUTO) 5.8 % (0-6); HEMATOCRIT 34.2 % (36.0-47.0); HEMOGLOBIN 11.6 g/dL (12.0-15.5); LYMPHOCYTES % (AUTO) 21.8 % (13-45); MEAN CORPUSCULAR HEMOGLOBIN 31.1 pg (27.0-33.4); MEAN CORPUSCULAR HGB CONC 33.9 g/dL (32.0-36.0); MEAN CORPUSCULAR VOLUME 92 fl (80-97); MONOCYTES % (AUTO) 9.5 % (3-13); PLATELET COUNT 201 10^3/uL (150-450); RED BLOOD COUNT 3.74 10^6/uL (3.72-5.28); RED CELL DISTRIBUTION WIDTH 13.9 % (11.5-14.0); SEGMENTED NEUTROPHILS % (AUTO) 62.1 % (42-78); TOTAL CELLS COUNTED % (AUTO) 100 %; WHITE BLOOD COUNT 8.3 10^3/uL (4.0-10.5)
[2020-10-10] MEDS: ACETAMINOPHEN 325 MG TABLET PO PRN (06:19)
[2020-10-10] MEDS: LEVOTHYROXINE SODIUM 0.025 MG TABLET PO SCH (06:20)
[2020-10-10] MEDS: LEVOTHYROXINE SODIUM 0.1 MG TABLET PO SCH (06:20)
[2020-10-10 06:35] LABS: ANION GAP 7 (5-19); BLOOD UREA NITROGEN 8 mg/dL (7-20); CALCIUM 8.3 mg/dL (8.4-10.2); CARBON DIOXIDE 23 mmol/L (22-30); CHLORIDE 106 mmol/L (98-107); GLUCOSE 113 mg/dL (75-110); POTASSIUM 3.7 mmol/L (3.6-5.0)
--- NOTE | 2020-10-10 07:37 | PDOC PROGRESS REPORT ---
Subjective Date:: 10/10/20 Subjective:: Patient doing well this morning. Reports that physical therapy did not work wit h her yesterday however after asking nursing staff they explained that the patient refused therapy. Pain well controlled this morning. Reason For Visit: HIP FXHE Physical Exam Vital Signs: Temp Pulse Resp BP Pulse Ox 98.3 F 65 18 136/61 H 93 10/10/20 00:34 10/10/20 02:00 10/10/20 00:34 10/10/20 00:34 10/10/20 00:34 Intake & Output 10/09/20 10/10/20 10/11/20 06:59 06:59 06:59 Intake Total 1205 461 Output Total 600 2070 Balance 605 -1609 Weight 62.9 kg 62.9 kg Physical Exam: No acute distress, alert and orient x3 Left lower extremity -Pulses 2+ distally -Compartments soft -Sensation grossly intact to L3-4-5 S1 -Motor grossly intact to EHL TA gastroc and quad Dressings clean dry and intact Results Laboratory Results: 10/10/20 04:47 10/10/20 04:47 10/09/20 10/09/20 10/10/20 06:30 06:30 04:47 WBC 7.4 8.3 RBC 3.74 3.74 Hgb 11.8 L D 11.6 L Hct 34.9 L 34.2 L MCV 93 92 MCH 31.4 31.1 MCHC 33.7 33.9 RDW 14.0 13.9 Plt Count 216 201 Seg Neutrophils % 48.7 62.1 Sodium 135.9 L Potassium 3.5 L Chloride 105 Carbon Dioxide 22 Anion Gap 9 BUN 9 Creatinine 0.57 Est GFR ( Amer) > 60 Glucose 123 H Calcium 8.0 L 10/10/20 04:47 WBC RBC Hgb Hct MCV MCH MCHC RDW Plt Count Seg Neutrophils % Sodium 136.1 L Potassium 3.7 Chloride 106 Carbon Dioxide 23 Anion Gap 7 BUN 8 Creatinine 0.53 Est GFR ( Amer) > 60 Glucose 113 H Calcium 8.3 L Impressions: Fluoroscopy 10/08/20 00:00 IMPRESSION: IMAGE(S) OBTAINED DURING PROCEDURE. Hip X-Ray 10/08/20 01:16 IMPRESSION: Left femur fracture. Chest X-Ray 10/08/20 02:19 IMPRESSION: 1. No acute pulmonary process identified. Assessment & Plan - Diagnosis (1) Intertrochanteric fracture of left hip Is this a current diagnosis for this admission?: Yes Plan: - 2 doses of Ancef postoperatively q 8 hours to complete 24 hours perioperatively -Weightbearing as tolerated, no precautions, encourage out of bed ANTIONETTE for ADL training - PT/OT -aspirin 325 daily for DVT prophylaxis for 6 weeks -multimodal pain management to avoid excessive narcotics, including gabapentin, tramadol, Toradol, acetaminophen. -Dressing should not be removed for 7 to 10 days until seen in the office -May shower with the dressing intact, if it starts to come off she should not get the incision wet. -Follow-up with Dr. Cade Bates, orthopedic surgeon at [facility] for surgery, in 10 days. Call for an appointment. . [address], [place] [address] - Time Time Spent with patient: Less than 15 minutes
[2020-10-10] MEDS: MORPHINE SULFATE 10 MG/ML INJ IV PRN ×3 (09:30→18:35)
[2020-10-10] MEDS: METOPROLOL TARTRATE 50 MG TABLET PO SCH ×2 (09:30→21:20)
[2020-10-10] MEDS: DOCUSATE SODIUM 100 MG CAPSULE PO SCH ×2 (09:30→17:51)
[2020-10-10] MEDS: ASPIRIN 325 MG TABLET PO SCH (09:30)
[2020-10-10] MEDS: LISINOPRIL 10 MG TABLET PO SCH (09:30)
[2020-10-10] MEDS: ENOXAPARIN SODIUM INJ 40 MG/0.4 ML DISP.SYRIN SUBCUT SCH (09:32)
[2020-10-10] MEDS: FAMOTIDINE INJ/PF 20 MG/2 ML SDV IV SCH ×2 (09:32→21:21)
[2020-10-10] MEDS: ASPIRIN 81 MG TABLET, CHEWABLE PO SCH (09:34)
--- NOTE | 2020-10-10 15:33 | PDOC PROGRESS REPORT ---
Subjective Date:: 10/10/20 Subjective:: Patient seen by the bedside, status post ORIF Reason For Visit: HIP FXHE Physical Exam Vital Signs: Temp Pulse Resp BP Pulse Ox 98.2 F 62 16 133/66 H 95 10/10/20 11:50 10/10/20 11:50 10/10/20 11:50 10/10/20 11:50 10/10/20 11:50 Intake & Output 10/09/20 10/10/20 10/11/20 06:59 06:59 06:59 Intake Total 1205 461 230 Output Total 600 2070 150 Balance 605 -1609 80 Weight 62.9 kg 62.9 kg General appearance: PRESENT: no acute distress Eye exam: PRESENT: PERRLA Respiratory exam: PRESENT: clear to auscultation shanita Cardiovascular exam: PRESENT: +S1, +S2 GI/Abdominal exam: PRESENT: soft Neurological exam: PRESENT: alert, CN II-XII grossly intact Results Laboratory Results: 10/10/20 04:47 10/10/20 04:47 10/10/20 10/10/20 04:47 04:47 WBC 8.3 RBC 3.74 Hgb 11.6 L Hct 34.2 L MCV 92 MCH 31.1 MCHC 33.9 RDW 13.9 Plt Count 201 Seg Neutrophils % 62.1 Sodium 136.1 L Potassium 3.7 Chloride 106 Carbon Dioxide 23 Anion Gap 7 BUN 8 Creatinine 0.53 Est GFR ( Amer) > 60 Glucose 113 H Calcium 8.3 L Impressions: Fluoroscopy 10/08/20 00:00 IMPRESSION: IMAGE(S) OBTAINED DURING PROCEDURE. Hip X-Ray 10/08/20 01:16 IMPRESSION: Left femur fracture. Chest X-Ray 10/08/20 02:19 IMPRESSION: 1. No acute pulmonary process identified. Assessment & Plan - Diagnosis (1) Displaced intertrochanteric fracture of left femur, initial encounter for closed fracture Is this a current diagnosis for this admission?: Yes Plan: continue treatment (2) Atherosclerotic heart disease of [place] coronary artery without angina pectoris Qualifiers: [place] vs. transplanted heart: [place] heart Qualified Code(s): I25.10 - Atherosclerotic heart disease of [place] coronary artery without angina pectoris Is this a current diagnosis for this admission?: Yes - Time Time Spent with patient: 15-24 minutes Level of Care: MEDICAL Anticipated discharge: Home
[2020-10-10] MEDS: NORMAL SALINE 1000 ML 1,000 ML IV PRN (18:35)
[2020-10-10] MEDS: ESCITALOPRAM OXALATE 10 MG TABLET PO SCH (21:20)
[2020-10-10] MEDS: ATORVASTATIN CALCIUM 10 MG TABLET PO SCH (21:20)
[2020-10-10] MEDS: MONTELUKAST SODIUM 10 MG TABLET PO SCH (21:20)
[2020-10-10] MEDS: CETIRIZINE 10 MG TABLET PO SCH (21:20)
[2020-10-11 06:21] LABS: ANION GAP 6 (5-19); BLOOD UREA NITROGEN 10 mg/dL (7-20); CALCIUM 8.1 mg/dL (8.4-10.2); CARBON DIOXIDE 25 mmol/L (22-30); CHLORIDE 106 mmol/L (98-107); GLUCOSE 98 mg/dL (75-110); POTASSIUM 3.7 mmol/L (3.6-5.0)
[2020-10-11 06:51] LABS: ABSOLUTE BASOPHILS # (AUTO) 0.1 10^3/uL (0.0-0.2); ABSOLUTE EOSINOPHILS # (AUTO) 0.5 10^3/uL (0.0-0.6); ABSOLUTE LYMPHOCYTES (AUTO) 2.3 10^3/uL (0.5-4.7); ABSOLUTE MONOCYTES (AUTO) 0.6 10^3/uL (0.1-1.4); ABSOLUTE NEUT (AUTO) 4.3 10^3/uL (1.7-8.2); BASOPHILS % (AUTO) 0.7 % (0-2); EOSINOPHILS % (AUTO) 6.5 % (0-6); HEMATOCRIT 30.8 % (36.0-47.0); HEMOGLOBIN 10.5 g/dL (12.0-15.5); LYMPHOCYTES % (AUTO) 29.8 % (13-45); MEAN CORPUSCULAR HEMOGLOBIN 31.4 pg (27.0-33.4); MEAN CORPUSCULAR HGB CONC 34.2 g/dL (32.0-36.0); MEAN CORPUSCULAR VOLUME 92 fl (80-97); MONOCYTES % (AUTO) 7.5 % (3-13); PLATELET COUNT 166 10^3/uL (150-450); RED BLOOD COUNT 3.35 10^6/uL (3.72-5.28); RED CELL DISTRIBUTION WIDTH 13.9 % (11.5-14.0); SEGMENTED NEUTROPHILS % (AUTO) 55.5 % (42-78); TOTAL CELLS COUNTED % (AUTO) 100 %; WHITE BLOOD COUNT 7.7 10^3/uL (4.0-10.5)
[2020-10-11] MEDS: LEVOTHYROXINE SODIUM 0.1 MG TABLET PO SCH (07:44)
[2020-10-11] MEDS: LEVOTHYROXINE SODIUM 0.025 MG TABLET PO SCH (07:44)
--- OUTSIDE RECORDS SUMMARY | 2020-10-11 08:52 | XMS REPORT ---
:1945 [facility] – [place] [address] [place] [id number] Care Team Providers Name Role Phone Unavailable Unavailable Unavailable Allergies, Adverse Reactions, Alerts This patient has no known allergies or adverse reactions. Medications Ordered Filled Start Stop Current Ordering Indication Dosage Frequency Signature Comments Components Medication Medication Date Date Medication? Clinician (SIG) Name Name omeprazole Yes 20mg Take 20 mg Take 20 (PRILOSEC) by mouth mg by 20 MG daily. mouth capsule daily. busPIRone Yes 5mg Take 5 mg Take 5 mg (BUSPAR) 5 by mouth by alisha th MG tablet Three (3) Three (3) times a times a day. day. levothyroxi Yes 112ug Take 112 Take 112 ne mcg by mcg by (SYNTHROID) mouth mouth 112 MCG daily. daily. tablet metoprolol Yes 100mg Take 100 Take 1 00 tartrate mg by mg by (LOPRESSOR) mouth Two mout h Two 100 MG (2) times (2) times tablet a day. a day. escitalopra Yes 20mg Take 20 mg Lior e 20 m oxalate by mouth mg by (LEXAPRO) daily. mouth 20 MG daily. tablet alendronate Yes Take by Take b y sodium mouth. mouth. (FOSAMAX ORAL) fluticasone Yes 1{spray 1 spray by 1 spray propionate } Each Nare by Ea ch (FLONASE) route Nare 50 daily. route mcg/actuati daily. on nasal spray aspirin 81 Yes 81mg Chew 81 mg Chew 81 MG chewable daily. mg pilar y. tablet lisinopriL Yes 20mg Take 20 mg Take 20 (PRINIVIL,Z by mouth mg by ESTRIL) 20 daily. mouth MG tablet daily. Problems Condition Condition Condition Status Onset Resolution Last Treatin g Comments Name Details Category Date Date Treatment Clinician Date Not on file Not on file [id number] Procedures This patient has no known procedures. Results This patient has no known results. Encounters Start End Encounter Admission Attending Care Care Encounter ID Date/Time Date/Time Type Type Clinicians Facility Department 2020-06-08 2020-06-08 Outpatient [facility] [id number] 00:00:00 00:00:00 2020-06-07 2020-06-07 Outpatient [facility] [id number] 00:00:00 00:00:00 2020-06-07 2020-06-07 Outpatient [facility] [id number] 00:00:00 00:00:00 Plan of Treatment Planned Activity Planned Date Details Comments Future Scheduled Test [code = ] Future Scheduled Test [code = ] Future Scheduled Test [code = ] Future Scheduled Test [code = ] Future Scheduled Test [code = ] Future Scheduled Test [code = ] Future Scheduled Test [code = ] Future Scheduled Test [code = ] Future Scheduled Test [code = ] Future Scheduled Test [code = ] Future Scheduled Test [code = ] Future Scheduled Test [code = ] Social History This patient has no known social history. Vital Signs This patient has no known vital signs.
[2020-10-11] MEDS: MORPHINE SULFATE 10 MG/ML INJ IV PRN ×3 (08:58→21:14)
[2020-10-11] MEDS: ENOXAPARIN SODIUM INJ 40 MG/0.4 ML DISP.SYRIN SUBCUT SCH (09:05)
[2020-10-11] MEDS: LISINOPRIL 10 MG TABLET PO SCH (09:05)
[2020-10-11] MEDS: METOPROLOL TARTRATE 50 MG TABLET PO SCH ×2 (09:05→21:14)
[2020-10-11] MEDS: FAMOTIDINE 20 MG TABLET PO SCH ×2 (09:05→21:15)
[2020-10-11] MEDS: DOCUSATE SODIUM 100 MG CAPSULE PO SCH ×2 (09:05→17:12)
[2020-10-11] MEDS: ASPIRIN 325 MG TABLET PO SCH (09:05)
--- NOTE | 2020-10-11 11:49 | PDOC PROGRESS REPORT ---
Subjective Date:: 10/11/20 Subjective:: Patient was status post hip surgery currently doing well No chest pain no short of breath Patient's yesterday have a minimal physical therapy done patient's wants to go home but I think needed further physical therapy evaluations today for go home Reason For Visit: HIP FXHE Physical Exam Vital Signs: Temp Pulse Resp BP Pulse Ox 98.8 F 64 20 134/73 H 96 10/11/20 10:00 10/11/20 08:00 10/11/20 08:00 10/11/20 08:00 10/11/20 08:00 Intake & Output 10/10/20 10/11/20 10/12/20 06:59 06:59 06:59 Intake Total 461 1880 979 Output Total 2070 1150 Balance -1609 730 979 Weight 62.9 kg 61.2 kg General appearance: PRESENT: no acute distress, well-developed, well-nourished Head exam: PRESENT: atraumatic, normocephalic Eye exam: PRESENT: conjunctiva pink, EOMI, PERRLA. ABSENT: scleral icterus Ear exam: PRESENT: normal external ear exam Mouth exam: PRESENT: moist, tongue midline Neck exam: PRESENT: full ROM. ABSENT: carotid bruit, JVD, lymphadenopathy, thyromegaly Respiratory exam: PRESENT: clear to auscultation shanita Cardiovascular exam: PRESENT: RRR. ABSENT: diastolic murmur, rubs, systolic murmur Pulses: PRESENT: normal dorsalis pedis pul, +2 pedal pulses bilateral Vascular exam: PRESENT: normal capillary refill GI/Abdominal exam: PRESENT: normal bowel sounds, soft. ABSENT: distended, guarding, mass, organolmegaly, rebound, tenderness Rectal exam: PRESENT: deferred Neurological exam: PRESENT: alert, awake, oriented to person, oriented to place, oriented to time, oriented to situation, CN II-XII grossly intact. ABSENT: motor sensory deficit Psychiatric exam: PRESENT: appropriate affect, normal mood. ABSENT: homicidal ideation, suicidal ideation Skin exam: PRESENT: dry, intact, warm. ABSENT: cyanosis, rash Results Laboratory Results: 10/11/20 05:03 10/11/20 05:03 10/11/20 10/11/20 05:03 05:03 WBC 7.7 RBC 3.35 L Hgb 10.5 L Hct 30.8 L MCV 92 MCH 31.4 MCHC 34.2 RDW 13.9 Plt Count 166 Seg Neutrophils % 55.5 Sodium 137.4 Potassium 3.7 Chloride 106 Carbon Dioxide 25 Anion Gap 6 BUN 10 Creatinine 0.59 Est GFR ( Amer) > 60 Glucose 98 Calcium 8.1 L Impressions: Fluoroscopy 10/08/20 00:00 IMPRESSION: IMAGE(S) OBTAINED DURING PROCEDURE. Hip X-Ray 10/08/20 01:16 IMPRESSION: Left femur fracture. Chest X-Ray 10/08/20 02:19 IMPRESSION: 1. No acute pulmonary process identified. Assessment & Plan - Diagnosis (1) Closed left hip fracture Qualifiers: Encounter type: initial encounter Qualified Code(s): S72.002A - Fracture of unspecified part of neck of left femur, initial encounter for closed fracture Is this a current diagnosis for this admission?: Yes (2) Fall Qualifiers: Encounter type: initial encounter Qualified Code(s): W19.XXXA - Unspecified fall, initial encounter Is this a current diagnosis for this admission?: Yes (3) Hypertension Qualifiers: Hypertension type: essential hypertension Qualified Code(s): I10 - Essential (primary) hypertension Is this a current diagnosis for this admission?: Yes (4) Chronic obstructive pulmonary disease Qualifiers: COPD type: unspecified COPD Qualified Code(s): J44.9 - Chronic obstructive pulmonary disease, unspecified Is this a current diagnosis for this admission?: Yes (5) Osteoporosis Qualifiers: Osteoporosis type: age-related Is this a current diagnosis for this admission?: Yes (6) History of cerebrovascular disease Is this a current diagnosis for this admission?: Yes (7) Coronary disease Qualifiers: Coronary Disease-Associated Artery/Lesion type: redding artery Associated angina: without angina Is this a current diagnosis for this admission?: Yes (8) Hypothyroidism Qualifiers: Hypothyroidism type: acquired Qualified Code(s): E03.9 - Hypothyroidism, unspecified Is this a current diagnosis for this admission?: Yes - Time Time Spent with patient: 15-24 minutes Level of Care: IMCU Medications reviewed and adjusted accordingly: Yes Anticipated discharge: Home with Homehealth Anticipated DC Timeframe: within 24 hours - Plan Summary Plan Summary: The patient is doing very well with the physical therapy will discharge the patient's tomorrow with home health and physical therapy while patient did not want to go to the rehab
[2020-10-11] MEDS: ACETAMINOPHEN 325 MG TABLET PO PRN (17:13)
[2020-10-11] MEDS: ATORVASTATIN CALCIUM 10 MG TABLET PO SCH (21:15)
[2020-10-11] MEDS: CETIRIZINE 10 MG TABLET PO SCH (21:15)
[2020-10-11] MEDS: ESCITALOPRAM OXALATE 10 MG TABLET PO SCH (21:15)
[2020-10-11] MEDS: MONTELUKAST SODIUM 10 MG TABLET PO SCH (21:15)
[2020-10-12] MEDS: LEVOTHYROXINE SODIUM 0.025 MG TABLET PO SCH (05:21)
[2020-10-12] MEDS: LEVOTHYROXINE SODIUM 0.1 MG TABLET PO SCH (05:21)
[2020-10-12] MEDS: ACETAMINOPHEN 325 MG TABLET PO PRN ×2 (05:24→13:27)
[2020-10-12] MEDS: MORPHINE SULFATE 10 MG/ML INJ IV PRN (09:03)
[2020-10-12] MEDS: FAMOTIDINE 20 MG TABLET PO SCH (09:04)
[2020-10-12] MEDS: ENOXAPARIN SODIUM INJ 40 MG/0.4 ML DISP.SYRIN SUBCUT SCH (09:04)
[2020-10-12] MEDS: LISINOPRIL 10 MG TABLET PO SCH (09:04)
[2020-10-12] MEDS: METOPROLOL TARTRATE 50 MG TABLET PO SCH (09:04)
[2020-10-12] MEDS: DOCUSATE SODIUM 100 MG CAPSULE PO SCH (09:04)
[2020-10-12] MEDS: ASPIRIN 325 MG TABLET PO SCH (09:05)
--- NOTE | 2020-10-12 10:35 | PDOC DISCHARGE SUMMARY ---
Impression - Admit/DC Date/PCP Admission Date/Primary Care Provider: 10/08/20 05:00 RUTH LOZADA MD Discharge Date: 10/12/20 - Discharge Diagnosis (1) Closed left hip fracture Is this a current diagnosis for this admission?: Yes (2) Fall Is this a current diagnosis for this admission?: Yes (3) Hypertension Is this a current diagnosis for this admission?: Yes (4) Chronic obstructive pulmonary disease Is this a current diagnosis for this admission?: Yes (5) Osteoporosis Is this a current diagnosis for this admission?: Yes (6) History of cerebrovascular disease Is this a current diagnosis for this admission?: Yes (7) Coronary disease Is this a current diagnosis for this admission?: Yes (8) Hypothyroidism Is this a current diagnosis for this admission?: Yes - Additional Information Resuscitation Status: Full Code Discharge Diet: Cardiac Discharge Activity: Activity As Tolerated Referrals: RUTH LOZADA MD [Primary Care Provider] - 10/20/20 10:15 am SILVIO YANCEY JR, DO [ACTIVE PROVISIONAL STAFF] - 10/27/20 8:10 am Prescriptions: Aspirin [Aspirin 325 mg Tablet] 325 mg PO DAILY #40 tablet Famotidine [Pepcid 20 mg Tablet] 20 mg PO Q12 #60 tablet Home Medications: Aspirin [Aspirin 81 mg Chewable Tablet] 81 mg PO DAILY 08/09/17 Atorvastatin Calcium 10 mg PO QHS 08/09/17 Escitalopram Oxalate [Lexapro] 20 mg PO QHS 08/09/17 Levothyroxine Sodium [Synthroid] 125 mcg PO Q6AM 08/13/17 Albuterol Sulfate [Proair HFA Inhalation Aerosol 8.5 gm MDI] 2 puff IH Q4 PRN #1 mdi 06/11/20 Cetirizine HCl [Zyrtec 10 mg Tablet] 10 mg PO QHS 10/08/20 Cimetidine [Tagamet 200 mg Tablet] 200 mg PO QHS 10/08/20 Lisinopril [Zestril] 20 mg PO DAILY 10/08/20 Metoprolol Tartrate [Lopressor 100 mg Tablet] 50 mg PO Q12 10/08/20 Montelukast Sodium [Singulair 10 mg Tablet] 10 mg PO QHS 10/08/20 Multivitamin [Daily Multiple Vitamin] 1 tab PO DAILY 10/08/20 Omeprazole 20 mg PO DAILY 10/08/20 Aspirin [Aspirin 325 mg Tablet] 325 mg PO DAILY #40 tablet 10/12/20 Famotidine [Pepcid 20 mg Tablet] 20 mg PO Q12 #60 tablet 10/12/20 History of Present Illiness History of Present Illness: MADDISON SILVA is a 75 year old female 75-year-old female with a history of hypertension hyperlipidemia osteoporosis COPD came to the emergency department for accidental fall in the bucket and landed on a wooden floor and complaining of left hip pain Patient is diagnosed with a left femoral neck fracture and patient admitting in the hospital for further evaluation and possible surgery Patient have Osteoporosis Last Bone density was done couple of years back Since denied any heart disease Patient denied any chest pain no short of breath no other symptoms Patient have a history of the stroke in the past History of the pulmonary nodules current CT scan was done this month was all stable Discussed with the patient and the family at bedside regarding the patient's current conditions Hospital Course Hospital Course: This is 75-year-old female accidentally fall and a fracture of the left femoral neck underwent for the nail placement by the orthopedic surgery Patient also seen by the cardiology before the surgery all stable Patient's have a no complication after surgery doing well Patient stated physical therapy and patient and the niece who is taking care of the patient's wants to go home not on nursing facilities Patient at this point discharged home with a stable conditions use the as needed Tylenol and will give her some tramadol for the pain well patient does not like a Percocet Discussed with the patient's niece regarding the patient's current conditions and follow-up with orthopedic surgeon Also continues aspirin 325 mg per 6-week for the DVT prophylaxis per Ortho Physical Exam Vital Signs: Temp Pulse Resp BP Pulse Ox 97.6 F 83 19 128/84 H 95 10/12/20 08:07 10/12/20 08:07 10/12/20 08:07 10/12/20 08:07 10/12/20 08:07 Intake & Output 10/11/20 10/12/20 10/13/20 06:59 06:59 06:59 Intake Total 1880 1599 Output Total 1150 1270 Balance 730 329 Weight 61.2 kg 59.2 kg General appearance: PRESENT: no acute distress, well-developed, well-nourished Head exam: PRESENT: atraumatic, normocephalic Eye exam: PRESENT: conjunctiva pink, EOMI, PERRLA. ABSENT: scleral icterus Ear exam: PRESENT: normal external ear exam Mouth exam: PRESENT: moist, tongue midline Neck exam: ABSENT: carotid bruit, JVD, lymphadenopathy, thyromegaly Respiratory exam: PRESENT: clear to auscultation shanita. ABSENT: rales, rhonchi, wheezes Cardiovascular exam: PRESENT: RRR. ABSENT: diastolic murmur, rubs, systolic murmur Pulses: PRESENT: normal dorsalis pedis pul Vascular exam: PRESENT: normal capillary refill GI/Abdominal exam: PRESENT: normal bowel sounds, soft. ABSENT: distended, guarding, mass, organolmegaly, rebound, tenderness Rectal exam: PRESENT: deferred Extremities exam: PRESENT: full ROM. ABSENT: calf tenderness, clubbing, pedal edema Neurological exam: PRESENT: alert, awake, oriented to person, oriented to place, oriented to time, oriented to situation, CN II-XII grossly intact. ABSENT: motor sensory deficit Psychiatric exam: PRESENT: appropriate affect, normal mood. ABSENT: homicidal ideation, suicidal ideation Skin exam: PRESENT: dry, intact, warm. ABSENT: cyanosis, rash Results Laboratory Results: WBC 7.7 10^3/uL (4.0-10.5) 10/11/20 05:03 RBC 3.35 10^6/uL (3.72-5.28) L 10/11/20 05:03 Hgb 10.5 g/dL (12.0-15.5) L 10/11/20 05:03 Hct 30.8 % (36.0-47.0) L 10/11/20 05:03 MCV 92 fl (80-97) 10/11/20 05:03 MCH 31.4 pg (27.0-33.4) 10/11/20 05:03 MCHC 34.2 g/dL (32.0-36.0) 10/11/20 05:03 RDW 13.9 % (11.5-14.0) 10/11/20 05:03 Plt Count 166 10^3/uL (150-450) 10/11/20 05:03 Lymph % (Auto) 29.8 % (13-45) 10/11/20 05:03 [place] % (Auto) 7.5 % (3-13) 10/11/20 05:03 Eos % (Auto) 6.5 % (0-6) H 10/11/20 05:03 Baso % (Auto) 0.7 % (0-2) 10/11/20 05:03 Absolute Neuts (auto) 4.3 10^3/uL (1.7-8.2) 10/11/20 05:03 Absolute Lymphs (auto) 2.3 10^3/uL (0.5-4.7) 10/11/20 05:03 Absolute Monos (auto) 0.6 10^3/uL (0.1-1.4) 10/11/20 05:03 Absolute Eos (auto) 0.5 10^3/uL (0.0-0.6) 10/11/20 05:03 Absolute Basos (auto) 0.1 10^3/uL (0.0-0.2) 10/11/20 05:03 Seg Neutrophils % 55.5 % (42-78) 10/11/20 05:03 PT 11.8 SEC (11.4-15.4) 10/08/20 03:59 INR 0.85 10/08/20 03:59 APTT 31.4 SEC (23.5-35.8) 10/08/20 03:59 Sodium 137.4 mmol/L (137-145) 10/11/20 05:03 Potassium 3.7 mmol/L (3.6-5.0) 10/11/20 05:03 Chloride 106 mmol/L (98-107) 10/11/20 05:03 Carbon Dioxide 25 mmol/L (22-30) 10/11/20 05:03 Anion Gap 6 (5-19) 10/11/20 05:03 BUN 10 mg/dL (7-20) 10/11/20 05:03 Creatinine 0.59 mg/dL (0.52-1.25) 10/11/20 05:03 Est GFR ( Amer) > 60 (>60) 10/11/20 05:03 Est GFR (MDRD) Non-Af > 60 (>60) 10/11/20 05:03 Glucose 98 mg/dL (75-110) 10/11/20 05:03 Calcium 8.1 mg/dL (8.4-10.2) L 10/11/20 05:03 Total Bilirubin 0.4 mg/dL (0.2-1.3) 10/08/20 03:59 Direct Bilirubin 0.2 mg/dL (0.0-0.4) 10/08/20 03:59 Neonat Total Bilirubin Not Reportable 10/08/20 03:59 Neonat Direct Bilirubin Not Reportable 10/08/20 03:59 Neonat Indirect Bili Not Reportable 10/08/20 03:59 AST 26 U/L (14-36) 10/08/20 03:59 ALT 17 U/L (<35) 10/08/20 03:59 Alkaline Phosphatase 83 U/L (38-126) 10/08/20 03:59 Total Protein 7.4 g/dL (6.3-8.2) 10/08/20 03:59 Albumin 4.2 g/dL (3.5-5.0) 10/08/20 03:59 Urine Color YELLOW 10/08/20 03:59 Urine Appearance CLEAR 10/08/20 03:59 Urine pH 6.0 (5.0-9.0) 10/08/20 03:59 Ur Specific [place] 1.008 10/08/20 03:59 Urine Protein NEGATIVE mg/dL (NEGATIVE) 10/08/20 03:59 Urine Glucose (UA) NEGATIVE mg/dL (NEGATIVE) 10/08/20 03:59 Urine Ketones NEGATIVE mg/dL (NEGATIVE) 10/08/20 03:59 Urine Blood NEGATIVE (NEGATIVE) 10/08/20 03:59 Urine Nitrite NEGATIVE (NEGATIVE) 10/08/20 03:59 Urine Bilirubin NEGATIVE (NEGATIVE) 10/08/20 03:59 Urine Urobilinogen NEGATIVE mg/dL (<2.0) 10/08/20 03:59 Ur Leukocyte Esterase NEGATIVE (NEGATIVE) 10/08/20 03:59 Urine WBC (Auto) 0 /HPF 10/08/20 03:59 Urine RBC (Auto) 1 /HPF 10/08/20 03:59 Urine Mucus (Auto) RARE /LPF 10/08/20 03:59 Urine Ascorbic Acid NEGATIVE (NEGATIVE) 10/08/20 03:59 SARS-CoV-2 (PCR) NEGATIVE (NEGATIVE) 10/08/20 08:30 Impressions: Fluoroscopy 10/08/20 00:00 IMPRESSION: IMAGE(S) OBTAINED DURING PROCEDURE. Hip X-Ray 10/08/20 00:00 IMPRESSION: IMAGE(S) OBTAINED DURING PROCEDURE. Hip X-Ray 10/08/20 01:16 IMPRESSION: Left femur fracture. Chest X-Ray 10/08/20 02:19 IMPRESSION: 1. No acute pulmonary process identified. Plan Time Spent: Greater than 30 Minutes - Home health and physical therapy Aspirin 325 mg for DVT prophylaxis per 6-week As needed Tylenol and tramadol for the pain Follow-up with orthopedic Stroke Is this a Stroke Patient?: No Acute Heart Failure Is this a Heart Failure Patient?: No
[2020-10-12 11:49] VITALS: BP 119/63
== END 2020-10-12 13:53 | disposition home health service (06) | DRG 482 ==
LOC: ER 01:02 → EH 05:00 → 4W 06:00
PROVIDERS: ADMIT Family Medicine; ATTEND Family Medicine
PROC: 0QS736Z Reposition Left Upper Femur with Intramedullary Internal Fixation Device, Percutaneous Approach (ICD-10-PCS; principal; 2020-10-08 12:00)
DX: S72.142A Displaced intertrochanteric fracture of left femur, initial encounter for closed fracture (principal); E03.9 Hypothyroidism, unspecified; W18.30XA Fall on same level, unspecified, initial encounter; I10 Essential (primary) hypertension; J44.9 Chronic obstructive pulmonary disease, unspecified; M81.0 Age-related osteoporosis without current pathological fracture; I25.10 Atherosclerotic heart disease of native coronary artery without angina pectoris; E78.5 Hyperlipidemia, unspecified; M19.90 Unspecified osteoarthritis, unspecified site; F17.210 Nicotine dependence, cigarettes, uncomplicated; Z79.82 Long term (current) use of aspirin; Z79.899 Other long term (current) drug therapy; Y92.019 Unspecified place in single-family (private) house as the place of occurrence of the external cause; Z86.73 Personal history of transient ischemic attack (TIA), and cerebral infarction without residual deficits
CPT/HCPCS: 01230; 36415; 71045; 80048; 80053; 81001; 85025; 85610; 85730; 87635; 93005; 93010; 93306; 96374; 99285; C1713; C9803; J0690; J1650; J2250; J2270; J3010; J7030; J7060; S0028